=== PATIENT | female | born 2000 | race Caucasian/White ===

== ENCOUNTER 2023-05-22 11:23 | Outpatient (AMB) | payer OTHER, SELFPAY ==
--- NOTE | 2023-05-22 12:27 | MHC.OFFWIV ---
Intake Vital Signs 05/22/23 12:28 05/22/23 12:28 Height 5 ft 4 in Weight 124 lb 120 lb BMI 20.6 BP 110/70 Blood Pressure Location Lt brachial Position Sitting Pulse 87 Pulse Source Pulse Oximeter Temp 98.0 F Pulse Oximetry (%) 98 Oxygen Delivery Method Room Air Intake Visit Reasons: EP, slight dizziness, hx eating disorder Intake Note: pt is here today fpr slight dizziness, eating disorder started 4 days ago Patient Tobacco Use Status: Never used Tobacco Is last menstrual period known: No Patient : No Allergies No Known Allergies Allergy (Verified 05/22/23 12:52) Medication List - Last Reconciled 05/22/23 by Chai Michel MD No Known Home Meds Do you need a note to return to daycare/school/sports/work: No HPI EP, slight dizziness, hx eating disorder HPI Details 22-year-old female presents to the office for a sick visit. She had 1 episode of fainting 2 days ago. Patient got up from the tiny table and was about to go to the living room when she suddenly passed out. She woke up on the floor and felt fine. No urinary incontinence or any evidence of injury. Patient lives alone and so this episode was unwitnessed. She feels fine. She gives a history of eating disorder and is followed by a dietitian. She is requesting blood work. [facility] Social History Patient Tobacco Use Status: Never used Tobacco Patient : No Physical Exam Vital Signs: Last Vital Signs Temp 98.0 F 05/22/23 12:28 Pulse 87 05/22/23 12:28 BP 110/70 05/22/23 12:28 Pulse Ox 98 05/22/23 12:28 Oxygen Delivery Method Room Air 05/22/23 12:28 BMI result Body Mass Index 20.6 Const General: cooperative and healthy appearing Nutritional Appearance: well nourished Orientation/consciousness: patient oriented x3 Limitations: no limitations HEENT Head: Yes normal to inspection Eyes General: appearance normal, both eyes and all related structures Neck Neck: Yes normal visual inspection Chest Chest palpation & inspection: normal palpation of entire chest wall Resp Effort & Inspection: normal respiratory effort Neuro General: patient oriented x3 Assessment & Plan Assessment & Plan (1) Syncope: Code(s): R55 - Syncope and collapse Plan: Blood work ordered. Most likely symptoms are vasovagal. Coding Level of Care Code Est Pt Level 3 (42475) Diagnoses Syncope R55
[2023-05-22 12:28] VITALS: BP 110/70; PULSE 87; TEMP 36.7; O2SAT 98; BMI 20.6
== END 2023-05-22 12:51 | disposition home or self-care (01) ==
PROVIDERS: Visit Provider Internal Medicine
DX: R55 Syncope and collapse (principal)
CPT/HCPCS: 99213

== ENCOUNTER 2023-05-22 12:58 | Outpatient (REF) | payer OTHER, SELFPAY ==
[2023-05-22 16:56] LABS: Anion Gap 13 (12-20); Blood Urea Nitrogen 19 mg/dL (9-16); Calcium 10.1 mg/dL (8.4-10.2); Carbon Dioxide 25 mmol/L (22-29); Chloride 106 mmol/L (96-108); Estimated Glomerular Filt Rate > 60; Glucose Random 82 mg/dL (60-115); Potassium 4.2 mmol/L (3.3-5.1); Sodium 140 mmol/L (135-145)
[2023-05-22 17:13] LABS: Thyroid Stimulating Hormone 1.25 uIU/mL (0.32-4.0)
== END 2023-05-22 12:59 | disposition home or self-care (01) ==
LOC: HO.HMGCLDS 12:58
PROVIDERS: Visit Provider Internal Medicine
DX: R55 Syncope and collapse (principal)
CPT/HCPCS: 36415; 80048; 84443; 85027; 85652

== ENCOUNTER 2024-02-13 14:16 | Outpatient (AMB) | payer OTHER, SELFPAY ==
--- NOTE | 2024-02-13 14:20 | MHC.OFFWIV ---
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 Denies any chance of . 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 Due to this, she has also had decreased appetite. Denies any vomiting, diarrhea, constipation, or abdominal pain. Has been voiding and having normal BMs. Denies any fever, chills, recent illness, or any other associated symptoms. Denies known exposure to sick contacts. Has not tried any otc remedies for this. Denies chance of . [facility] Social History Patient Tobacco Use Status: Never used Tobacco Review of Systems Const All systems reviewed & are unremarkable except as noted in HPI and below Physical Exam Vital Signs: Last Vital Signs Pulse 87 02/13/24 14:23 BP 110/72 02/13/24 14:23 Pulse Ox 98 02/13/24 14:23 Oxygen Delivery Method Room Air 02/13/24 14:23 BMI result Body Mass Index 22.8 Const General: cooperative, healthy appearing, comfortable, no acute distress and Physically active Nutritional Appearance: average body habitus HEENT Head: Yes normal to inspection Ears: hearing grossly normal bilaterally Neck Neck: Yes no lymphadenopathy Resp Effort & Inspection: normal respiratory effort Auscultation: clear to auscultation bilaterally Cardio Rate: regular rate Rhythm: regular rhythm GI Palpation (GI): Soft to palpation (nontender) Skin General skin exam: no rashes or lesions noted Extrem General: Yes no clubbing, cyanosis or edema Psych Appearance: grossly normal Mental Status: mental status grossly normal Speech and movement: Normal speech and movement present Assessment & Plan Assessment & Plan (1) Nausea alone: Code(s): R11.0 - Nausea Plan: Patient having nausea alone, with no other associated symptoms. Will try Ondansetron and we discussed BRAT diet, advancing as tolerated. We reviewed indications and use of medication. She declined any viral testing today. She will return to clinic if symptoms do not resolve by next week with medication and conservative measures. She does not currently have a PCP and we discussed contacting primary care offices to make an appt. to get established with a PCP (lives in [place] so is going to try [facility] [place] office). All questions were answered and patient agrees to plan. Medications: New ondansetron 4 mg PO Q8H PRN 20 tabs 0RF nausea and vomiting R11.0 - Nausea Coding Level of Care Code Est Pt Level 4 (14495) Diagnoses Nausea alone R11.0
[2024-02-13 14:23] VITALS: BP 110/72; PULSE 87; O2SAT 98; BMI 22.8
== END 2024-02-13 15:12 | disposition home or self-care (01) ==
PROVIDERS: Visit Provider Nurse Practitioner Family
DX: R11.0 Nausea (principal)

== ENCOUNTER → 2024-02-13 14:16 | Outpatient (BNVA) | payer OTHER, SELFPAY | DX: R11.0 Nausea (principal) ==

== ENCOUNTER 2024-04-08 20:35 | Emergency (ER) | payer OTHER, SELFPAY ==
[2024-04-08 20:45] VITALS: BP 134/94; PULSE 84; RESP 18; TEMP 36.9; O2SAT 100; BMI 20.9
--- NOTE | 2024-04-08 20:45 | ED.GENADULT ---
HPI - General Adult General Chief complaint: Syncope Stated complaint: dizziness, syncopal episode Time Seen by Provider: 04/08/24 22:55 Source: patient Mode of arrival: ambulatory Limitations: no limitations History of Present Illness ED Provider: Dr. Nicolas Noriega HPI narrative: 23-year-old female with history of eating disorder presenting with complaint of syncope. The patient states that at 19:00 hours she was walking from her bedroom to her living room when she felt dizzy. She sat down and her symptoms improved but when she stood up she passed out. She fell to the floor but does not believe that she hit her head or had any significant injury from fall. She believes that will she lost consciousness for seconds. The patient does have an eating disorder and she does have a dietitian in therapist that helps a with this disorder. She states that last week she went 2 days without eating. She states that she has been eating daily since then but is eating very small amounts of food. She also states that she has only been drinking 1 bottle of water per day. She states that when she eats she does feel abdominal discomfort and she is concerned about repeating syndrome. 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 She denies tobacco use. She denies alcohol use. Social History Social History Patient Tobacco Use Status: Never used Tobacco Smoked in Last 30 Days: No Use of substances other than those prescribed or required for medical reasons: No Advance Directives: No Advance Directives Information Provided: No Do you have a plan to hurt others: No Plan Physical Exam ED Vital Signs: Vital Signs - 24 hr 04/08/24 20:45 04/08/24 21:24 04/08/24 21:24 Temperature 98.5 F Pulse Rate 84 80 75 Respiratory Rate 18 Blood Pressure 134/94 H 128/75 128/84 Pulse Oximetry 100 Oxygen Delivery Method Room Air 04/08/24 21:25 04/08/24 22:40 04/08/24 23:31 Temperature 98.2 F 98.2 F Pulse Rate 88 64 64 Respiratory Rate 16 16 Blood Pressure 120/88 124/80 124/80 Pulse Oximetry 100 100 Oxygen Delivery Method Room Air Room Air BMI result Body Mass Index 20.9 Vital signs were normal. Orthostatic vital signs: Lying: Heart rate 80, BP 128/77 Sitting: Heart rate 75, BP 128/84 Standing: Heart rate 88, BP 120/88 Exam: General: Awake, alert in no distress. Weight 55.2 kg, BMI low at 20.9 kg per meter sq Head: Normocephalic, atraumatic EENT: PERRL, Lids normal, sclera normal, conjunctiva normal, nose normal , ears normal, throat without erythema or exudates Neck: Supple, no adenopathy Lung: breath sounds symmetric, no wheezing, rales or rhonchi Chest: symmetric movement, nontender Heart: regular rate and rhythm, normal S1, S2 no murmurs or rubs Abdomen: soft, non-tender, nondistended, normal bowel sounds Back: no vertebral tenderness, no CVAT Extremities: no deformities, moves all extremities symmetrically Neuro: Awake, alert, oriented, normal speech, cranial nerves intact, moves all extremities symmetrically Psych: Pleasant, cooperative Course Course Course Narrative: This is a rapid medical exam performed by Selena Monzon NP: Additional HPI, ROS, PE not included below will be deferred to primary provider. Patient is a 23-year-old female with history of eating disorder presenting with complaint of syncope around 7pm today. Denies head strike. States has been struggling with her eating disorder recently. [employer] concerned for refeeding syndrome. Plan: EKG, labs Medical Decision Making Medical Decision Making MDM Narrative: 23-year-old female with history of eating disorder presenting with complaint of syncope. the patient has been eating small amounts of food and only drinking small amounts of fluid and did have appear to fasting last week with no food intake for 2 days. Patient had a syncopal episode when she was walking from her bedroom to the kitchen. Patient did have prodromal symptoms of lightheaded and dizziness before she syncopized. orthostatic vital signs were normal. Physical examination was unremarkable. Differential diagnosis: Includes but is not limited to Myocardial infarction, myocardial ischemia, electrolyte abnormalities, anemia, dehydration, volume depletion, malnutrition Course: My independent interpretation patient's laboratory evaluation is as follows: CBC was normal. CMP was normal Except for slight elevation in her total bilirubin of 1.2. Beta hCG was negative. EKG was unremarkable The patient's syncopal episode is consistent with a vasovagal syncope most likely triggered by malnutrition caused by her eating disorder and volume depletion from not drinking enough fluid during the day. I did discuss this with the patient. Patient was advised to try to increase the amount of food that she ate strain today and to try to increase the amount of fluid that she drinks as well. She is advised to follow-up with her therapist for further management of her eating disorder. Admission/Observation Consideration of admission/observation: Escalation of care including admission/observation considered ( Yes) Lab Data MDM Lab Attestation statement: I reviewed the patient's lab results. 04/08/24 21:11 04/08/24 21:11 Labs: Lab Results 04/08/24 04/08/24 Range/Units 20:50 21:11 WBC 7.4 (4.8-10.8) X10*3/uL RBC 4.72 (4.20-5.50) X10*6/uL Hgb 14.2 (12.0-16.0) g/dl Hct 41.9 (37.0-47.0) % MCV 88.8 (80.0-98.0) fL MCH 30.1 (27.0-33.0) pg MCHC 33.9 (31.0-35.0) g/dl RDW 12.0 (11.0-16.0) % Plt Count 233 (160-400) X10*3/uL MPV 8.8 L (9.4-12.3) fL Immature Gran % (Auto) 0.3 (0.0-0.4) % Neut % (Auto) 63.9 (45-73) % Lymph % (Auto) 26.9 (20-40) % Boundary % (Auto) 6.1 (2-11) % Eos % (Auto) 2.4 (0-4) % Baso % (Auto) 0.4 (0-2) % Lymph # (Auto) 2.0 (1.2-4.9) X10*3/uL Boundary # (Auto) 0.5 (0.1-1.2) X10*3/uL Eos # (Auto) 0.2 (0.0-0.4) X10*3/uL Baso # (Auto) 0.0 (0.0-0.2) X10*3/uL Abs Immat Gran (auto) 0.02 (0.00-0.03) X10*3/uL Absolute Neuts (auto) 4.7 (2.0-8.3) x10*3/uL Absolute Nucleated RBC 0.000 (0.0-0.012) X10*3/uL Nucleated RBC % (auto) 0.0 (0.0-0.2) /100WBC Sodium 140 (135-145) mmol/L Potassium 3.7 (3.3-5.1) mmol/L Chloride 107 (96-108) mmol/L Carbon Dioxide 24 (22-29) mmol/L Anion Gap 13 (12-20) BUN 15 (9-16) mg/dL Creatinine 0.74 (0.5-1.4) mg/dL Estim Creat Clear Calc 103.8 Estimated GFR > 60 POC Glucose 83 (60-115) mg/dL Random Glucose 88 (60-115) mg/dL Calcium 9.3 D (8.4-10.2) mg/dL Magnesium 2.1 (1.6-2.6) mg/dL Total Bilirubin 1.2 H (0.0-1.0) mg/dL AST 16 (5-31) U/L ALT 10 (0-31) U/L Alkaline Phosphatase 57 (39-117) U/L Total Protein 7.1 (6.5-8.0) g/dL Albumin 4.4 (3.5-5.0) g/dL Beta HCG, Quant < 2 mIU/mL Independent Interpretation I performed an independent interpretation of an: EKG Interpretation: My interpretation the patient's 12 EKG done at 20:53 hours is as follows: Normal sinus rhythm with a rate of 79, normal IA interval, QRS duration QTC interval, no ST segment elevation, no ST segment depression, no significant T-wave abnormalities, no PACs, no PVCs Chronic Conditions Patient?s care impacted by: Other ( eating disorder) Discharge Plan Discharge Clinical Impression: Vasovagal syncope Patient Disposition: Home, Self-Care Instructions: Syncope (ED) Additional Instructions: Your CBC, complete metabolic panel were normal. Your test was negative. Your EKG was normal as well. Your orthostatic vital signs were normal The reason why you passed out today was you are not drinking enough fluid and sometimes when your dehydrated or fluid depleted you can get lightheaded and dizzy and pass out. You should try to drink at least 2 L of fluid per day. You should also try to increase your food intake throughout the day. Continued to follow-up with your audio specialist and therapist to help with your eating disorder. Follow-up with your doctor in 2 days. Please return to the emergency department if your symptoms get worse or if you develop any symptoms that are concerning to you. Prescriptions: No Action ondansetron 4 mg tablet,disintegrating 4 mg PO Q8H PRN (Reason: nausea and vomiting) Qty: 20 0RF Interventions: ED Discharge Assessment Last Done: 04/08/24 23:31 Discharge Date/Time: 04/08/24 23:31 Print Language: Taiwanese
--- NOTE | 2024-04-08 20:47 | ECG_ITS ---
Test Reason : syncope Blood Pressure : / mmHG Vent. Rate : 079 BPM Atrial Rate : 079 BPM P-R Int : 164 ms QRS Dur : 098 ms QT Int : 352 ms P-R-T Axes : 000 -25 -12 degrees QTc Int : 403 ms Normal sinus rhythm with sinus arrhythmia Low voltage QRS Nonspecific T wave abnormality Abnormal ECG No previous ECGs available Referred By: Gregoria Monzon Electronically Signed By:FRANCOIS PAREDES MD
[2024-04-08 20:54] LABS: Glucose, Whole Blood 83 mg/dL (60-115)
[2024-04-08 21:16] LABS: MANUAL DIFF FLAG NO
[2024-04-08 21:17] LABS: Basophils Percent Auto 0.4 % (0-2); Eosinophils Absolute Auto 0.2 X10*3/uL (0.0-0.4); Eosinophils Percent Auto 2.4 % (0-4); Hematocrit 41.9 % (37.0-47.0); Hemoglobin 14.2 g/dl (12.0-16.0); Imm Gran Abs Auto 0.02 X10*3/uL (0.00-0.03); Imm Gran Pct Auto 0.3 % (0.0-0.4); Lymphocytes Percent Auto 26.9 % (20-40); Mean Corpuscular HGB Conc 33.9 g/dl (31.0-35.0); Mean Corpuscular Hemoglobin 30.1 pg (27.0-33.0); Mean Corpuscular Volume 88.8 fL (80.0-98.0); Mean Platelet Volume 8.8 fL (9.4-12.3); Monocytes Absolute Auto 0.5 X10*3/uL (0.1-1.2); Monocytes Percent Auto 6.1 % (2-11); Neutrophils Absolute Auto 4.7 x10*3/uL (2.0-8.3); Neutrophils Percent Auto 63.9 % (45-73); Platelet Count 233 X10*3/uL (160-400); Red Blood Count 4.72 X10*6/uL (4.20-5.50); White Blood Count 7.4 X10*3/uL (4.8-10.8)
[2024-04-08 21:24] VITALS: BP 128/75; BP 128/84; PULSE 75; PULSE 80
[2024-04-08 21:25] VITALS: BP 120/88; PULSE 88
--- NOTE | 2024-04-08 21:31 | PC.NURSE ---
pt from waiting room, a&ox4, vss. pt reports an unwitnessed loc from sitting today, denies head strike. pt reports recent history of eating disorder, pt reports been eating significantly more than baseline. pt reports she thinks this may have been the cause. pt offers no other complaints at this time.
[2024-04-08 21:37] LABS: Alanine Aminotransferase 10 U/L (0-31); Albumin Level 4.4 g/dL (3.5-5.0); Alkaline Phosphatase 57 U/L (39-117); Anion Gap 13 (12-20); Aspartate Amino Transferase 16 U/L (5-31); Bilirubin Total 1.2 mg/dL (0.0-1.0); Blood Urea Nitrogen 15 mg/dL (9-16); Calcium 9.3 mg/dL (8.4-10.2); Carbon Dioxide 24 mmol/L (22-29); Chloride 107 mmol/L (96-108); Creatinine Clr Calc Pharmacy 103.8; Estimated Glomerular Filt Rate > 60; Glucose Random 88 mg/dL (60-115); Magnesium 2.1 mg/dL (1.6-2.6); Potassium 3.7 mmol/L (3.3-5.1); Sodium 140 mmol/L (135-145); Total Protein 7.1 g/dL (6.5-8.0)
[2024-04-08 21:39] LABS: HCG Quantitative < 2 mIU/mL
[2024-04-08 22:40] VITALS: BP 124/80; PULSE 64; RESP 16; TEMP 36.8; O2SAT 100
[2024-04-08 23:31] VITALS: BP 124/80; PULSE 64; RESP 16; TEMP 36.8; O2SAT 100
== END 2024-04-08 23:31 | disposition home or self-care (01) ==
PROVIDERS: Registered Nurse Emergency; Emergency Provider Emergency Medicine Emergency Medical Services
DX: R55 Syncope and collapse (principal); R42 Dizziness and giddiness; R10.9 Unspecified abdominal pain
CPT/HCPCS: 36415; 80053; 82947; 83735; 84702; 85025; 93005; 99283; 99285

== ENCOUNTER → 2024-04-08 20:47 | Outpatient (BNV) | payer OTHER, SELFPAY | PROVIDERS: Emergency Provider Emergency Medicine Emergency Medical Services; Visit Provider Internal Medicine Cardiovascular Disease | DX: R94.31 Abnormal electrocardiogram [ECG] [EKG] (principal) | CPT/HCPCS: 93010 ==

== ENCOUNTER 2024-08-14 11:03 | Outpatient (AMB) | payer OTHER, SELFPAY ==
--- NOTE | 2024-08-14 11:32 | AM.OFFWIN_ITS ---
Intake Vital Signs 08/14/24 11:33 Weight 123 lb BP 110/70 Blood Pressure Location Rt brachial Position Sitting Pulse 65 Pulse Source Pulse Oximeter Pulse Oximetry (%) 98 Oxygen Delivery Method Room Air Intake Visit Reasons: EP Muscle aches/cramping Intake Note: Patient here for muscle cramps and weakness for the past couple of days. Patient Tobacco Use Status: Never used Tobacco Allergies shellfish derived Allergy (Verified 08/14/24 11:34) Unknown Do you need a note to return to daycare/school/sports/work: No HPI HPI Comments History of Present Illness Details History of Present Illness - The patient is a 23-year-old female pr esenting with muscle cramps, leg aches, and dizziness starting about three days ago. - Chief symptoms are muscle aches in the legs and back, severe calf cramps, and associated dizziness. - She denies being dehydrated and has be en hydrating with various fluids but without symptomatic relief. - A similar incident occurred years ago and her kidneys were affected, possibly linked to inadequate nutrition. 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 - Current hydration practices involve ap proximately two water bottles daily, with urine output normal. - She is trying to establish care with a primary care provider. Physical Exam General: Cooperative, healthy appearing, comfortable, no acute distress and well developed Orientation: Patient oriented x3 Limitations: none Head: Normal to inspection Ears: Hearing grossly normal bilaterally Nose: Normal External nose present Face and sinus: Normal facial exam Eyes: Appearance normal, both eyes and all related structures Neck: Normal visual inspection and Yes full ROM Respiratory: Normal respiratory effort and able to speak in complete sentences. Skin: No rashes or lesions noted Neuro: Patient oriented x3 Extremities: normal to inspection [facility] Social History Patient Tobacco Use Status: Never used Tobacco Review of Systems Const All systems reviewed & are unremarkable except as noted in HPI and below Physical Exam Vital Signs: Last Vital Signs Pulse 65 08/14/24 11:33 BP 110/70 08/14/24 11:33 Pulse Ox 98 08/14/24 11:33 Oxygen Delivery Method Room Air 08/14/24 11:33 Assessment & Plan Assessment & Plan (1) Bilateral leg cramps: Code(s): R25.2 - Cramp and spasm Plan: The consultation aimed to address ongoing muscle cramps, leg aches, and dizziness. Suspecting a viral origin, tests for influenza, COVID-19, and RSV are to be performed. Magnesium glycinate is recommended for muscle cramps. The patient is encouraged to persist with her current hydration routine while monitoring urine for abnormalities. Should her condition deteriorate or involve kidney functionality concerns, visiting an emergency unit for immediate assessment and laboratory work is advised. Arrangements for establishing a primary care provider are encouraged to ensure comprehensive ongoing health monitoring. Patient was given information and a phone number to establish care with a PCP. Patient was informed and verbally consented to the use of an ambient scribe for clinic note documentation during this visit. Orders: Orders SARS-CoV2/FLU/RSV Today R09.89 - Other specified symptoms and signs involving the circulatory and respiratory systems Coding Level of Care Code New Pt Level 3 (46400) Diagnoses Bilateral leg cramps R25.2
[2024-08-14 11:33] VITALS: BP 110/70; PULSE 65; O2SAT 98
== END 2024-08-14 11:55 | disposition home or self-care (01) ==
PROVIDERS: Visit Provider Physician Assistant
DX: R25.2 Cramp and spasm (principal)

== ENCOUNTER 2024-08-14 11:03 | Outpatient (REF) | payer OTHER, SELFPAY ==
[2024-08-14 15:16] LABS: Influenza A PCR NEGATIVE (Negative); Influenza B PCR NEGATIVE (Negative); Resp Syncy Virus RNA Qual PCR NEGATIVE (Negative); SARS COV2 PCR INHOUSE NEGATIVE (Negative)
== END 2024-08-14 11:04 | disposition home or self-care (01) ==
LOC: HO.LAB 11:03
PROVIDERS: Visit Provider Physician Assistant
DX: R25.2 Cramp and spasm (principal); R09.89 Other specified symptoms and signs involving the circulatory and respiratory systems
CPT/HCPCS: 0241U

== ENCOUNTER 2024-12-10 12:38 | Emergency (ER) | payer OTHER, SELFPAY ==
--- NOTE | ~2024-12-10 | CT_ITS ---
EXAMINATION: CT HEAD WITHOUT IV CONTRAST HISTORY: dizziness, fogginess, AMS. TECHNIQUE: Unenhanced helical CT of the head was performed per standard departmental protocol. Coronal and sagittal reformats of the head were also evaluated. One or more of the following techniques was used for dose reduction: Automated exposure control, adjustment of the mA and/or kV according to patient size, use of iterative reconstruction technique. DLP: 597 mGy-cm COMPARISON: There are no prior studies available for comparison. FINDINGS: BRAIN: The brain parenchyma is unremarkable. There is normal xiong/white differentiation. The ventricular system is normal in size and configuration. There is no mass effect or midline shift. No intra- or extra-axial fluid collections are identified. SINUSES: The visualized paranasal sinuses are clear. The mastoid air cells and middle ear cavities are well pneumatized. ORBITS: The visualized orbits are unremarkable. BONES/SOFT TISSUES: The extracranial soft tissues are unremarkable. The calvarium is intact. No suspicious lytic or sclerotic lesions. CT/CT head/brain wo IV con IMPRESSION: Unremarkable unenhanced head CT. Electronically signed by: Tyrel Gutierrez MD 12/10/2024 02:05 PM EDT
--- NOTE | ~2024-12-10 | XR_ITS ---
EXAMINATION: XR CHEST 1 VIEW HISTORY: dizziness, weakness COMPARISON: There are no prior studies available for comparison. FINDINGS: A single AP portable view of the chest performed at 1:13 PM is submitted. The lungs are expanded and clear. There is no pleural effusion, pneumothorax, or pulmonary vascular congestion. The heart is normal in size. The bones are intact. XR/XR chest 1V IMPRESSION: Clear lungs. Electronically signed by: Tyrel Gutierrez MD 12/10/2024 01:29 PM EDT
[2024-12-10 12:44] VITALS: BP 134/89; PULSE 128; RESP 18; TEMP 36.4; O2SAT 99; BMI 20.7
--- NOTE | 2024-12-10 12:44 | ED_ITS ---
HPI - General Adult General Chief complaint: General Medical Stated complaint: New neurological symptoms Time Seen by Provider: 12/10/24 12:50 Source: patient Mode of arrival: ambulatory Limitations: no limitations History of Present Illness ED Provider: Samara Limon PA-C HPI narrative: Patient is a 23 year old assigned female at with no reported medical history presenting to the emergency department today with intermittent fogginess, dizziness, hot flashes, sweating, and nausea. Patient states that a few times over the last 2 weeks she has had these episodes where she has intense grant vu, becomes foggy / confused, lightheaded, warm, and nauseous requiring her to lie down. Patient states that she remembers the incidents when they happen and there isn't anything in particular that is causing them. Patient denies any abdominal pain, vomiting, fever, chills, blurry vision, double vision, loss of vision, chest pain, difficulty breathing, shortness of breath, back pain, night sweats, pain with urination, increased urinary frequency, increased urinary urgency, blood in her urine or stool, syncope or a near syncopal episode, recent trauma or falls, bowel incontinence, bladder incontinence, or any other complaints at this time. Exacerbating factors: none Associated symptoms: diaphoresis (with the episode) and nausea/vomiting (with the episode) Treatments prior to arrival: none Related Data Previous Rx's ?Medication ?Instructions ?Recorded ondansetron 4 mg disintegrating 4 mg PO Q8H PRN nausea and 02/13/24 tablet vomiting #20 tabs Allergies Allergy/AdvReac Type Severity Reaction Status Date / Time shellfish derived Allergy Unknown Verified 12/10/24 12:51 Review of Systems 2 Constitutional: Constitutional: Reports no additional constitutional complaints, Denies chills, Denies fever(s) and Denies night sweats Eyes: Eyes: Reports no additional eye complaints, Denies blurry vision, Denies change in vision, Denies diplopia, Denies eye discharge, Denies loss of vision and Denies eye pain ENT: Reports dizziness (with the episode) Cardiovascular: Cardiovascular: Reports no additional cardiovascular complaints, Denies chest pain, Reports lightheadedness (with the episode), Denies Loss of Consciousness and Denies dyspnea Respiratory: Respiratory: Reports no additional respiratory complaints and Denies dyspnea Gastrointestinal: Gastrointestinal: Reports no additional gastrointestinal complaints, Denies abdominal pain, Denies melena, Denies hematochezia, Denies change in bowel habits and Denies change in stool character Genitourinary: Genitourinary: Denies hematuria, Denies urinary frequency, Denies dysuria, Denies urinary incontinence, Denies urinary hesitancy and Denies urinary urgency Musculoskeletal: Musculoskeletal: Reports no additional musculoskeletal complaints, Denies numbness and Denies tingling Neurologic: Reports dizziness (with the episode), Denies loss of vision, Denies numbness and Denies tingling Psychiatric: Psychiatric: Reports no additional psychiatric complaints Endocrine: Endocrine: Reports no additional endocrine complaints Hematologic/Lymphatic: Hematologic/Lymphatic: Reports no additional hematologic/lymphatic complaints Allergic/Immunologic: Allergic/Immunologic: Reports no additional allergic/immunologic complaints PMFSH Past Medical History Attestation statement: The following information was validated with the patient. Source: old records reviewed and nursing notes reviewed Social History Social History Patient Tobacco Use Status: Never used Tobacco Smoked in Last 30 Days: No Use of substances other than those prescribed or required for medical reasons: No Advance Directives: No Advance Directives Information Provided: Yes Do you have a plan to hurt others: No Plan Physical Exam ED Vital Signs: Vital Signs - 24 hr 12/10/24 12:44 12/10/24 13:32 12/10/24 13:33 Temperature 97.6 F Pulse Rate 128 H 70 83 Respiratory Rate 18 12 Blood Pressure 134/89 121/70 111/61 Pulse Oximetry 99 100 Oxygen Delivery Method Room Air Tent Room Air 12/10/24 13:34 12/10/24 13:35 Temperature Pulse Rate 90 73 Respiratory Rate Blood Pressure 120/72 127/79 Pulse Oximetry Oxygen Delivery Method BMI result Body Mass Index 20.7 Const General: cooperative, no acute distress, alert and awake Nutritional Appearance: well nourished Orientation/consciousness: patient oriented x3 HENMT Head: Yes normal to inspection and Yes atraumatic Ears: hearing grossly normal bilaterally and external ears normal General nose exam: Normal external nose present, no nasal discharge noted and no epistaxis Face and sinus: Yes normal facial exam, No abrasion and No laceration Mouth: Normal oral and palatal mucosa present, no drooling and no muffled voice Eyes General: appearance normal, both eyes and all related structures Periorbital: periorbital findings normal Eyelids: Yes eyelids normal Conjunctivae: conjunctivae normal Pupils: Equal, round and reactive pupils present EOM: EOMs intact bilaterally Neck Neck: Yes normal visual inspection, Yes full ROM and Yes no lymphadenopathy Resp Effort & Inspection: normal respiratory effort and able to speak in complete sentences Neuro General: patient oriented x3, moves all extremities and CN's II-XI intact bilaterally Cranial nerves: Yes Equal, round and reactive pupils present Cognition (Neuro): normal cognition Extrem General: Yes normal to inspection, Yes full ROM and Yes capillary refill normal Psych Appearance: grossly normal Mental Status: mental status grossly normal Affect: normal affect Attitude: cooperative Thought process: Normal thought process present Thought content: Normal thought content present Insight: Good insight present (Psych) Course Course Course Narrative: This is an RME: Additional HPI, ROS, PE not included below will be deferred to primary provider. RME assessment and note performed by: Nayeli Ventura PA-C This is a 86-olhg-xsm-female, with a history of migraines, who presents to the ER with a complaint of episodes of fogginess where she has to lay down. On arrival to triage, pt is tachycardic in the 140s. No CP or SOB. No recent travel, surgery, or hospitalizations. Last episode of this was on Saturday. She is not on control - denies chance of . Plan: Labs, EKG, patient to be brought back Medications Administered Discontinued Medications Generic Name Dose Route Start Last Admin Trade Name Freq PRN Reason Stop Dose Admin Sodium Chloride 1,000 mls @ 999 mls/hr 12/10/24 13:00 12/10/24 13:07 Ns IV 12/10/24 14:00 999 mls/hr .Q1H1M [facility] Administration Medical Decision Making Medical Decision Making MDM Narrative: Patient is a 23 year old assigned female at with no reported medical history presenting to the emergency department today with intermittent fogginess, dizziness, hot flashes, sweating, and nausea. Patient's physical exam showed a sinus arrhythmia with initial tachycardia but otherwise unremarkable. Patient's blood work was unremarkable. Patient's EKG showed sinus arrhythmia. Patient's chest x-ray and head CT showed no acute process. Patient's clinical presentation is most consistent with POTS / inappropriate tachycardia / vasovagal syncope. At this time, I do not believe the patient to be suffering from a seizure disorder. I explained my physical exam findings as well as all test results to the patient. I answered all questions asked by the patient. I stressed the importance of the patient taking her medication as directed (either prescribed or as the over the counter packaging recommends). I stressed the importance of the patient following up with a primary care provider, the cardiology team, and the neurology team to have a more comprehensive outpatient work up. I stressed the importance of the patient returning to the emergency department immediately if her symptoms were to worsen or if she were to develop any dizziness, shortness of breath, difficulty breathing, chest pain, blurry vision, loss of vision, nausea, vomiting, abdominal pain, fever, chills, back pain, or any other complaints. Patient verbalized agreement and understanding with this treatment plan and discharge. Differential Diagnosis Differential Diagnoses: The differential diagnosis associated with the presentation includes POTS Transient tachycardia Vasovagal syncope Near syncope Admission/Observation Consideration of admission/observation: Escalation of care including admission/observation considered Patient would have been admitted to the hospital had her work up had any findings where hospital admission was appropriate and her clinical presentation warranted hospital admission. Lab Data [facility] Lab Attestation statement: I reviewed the patient's lab results. My interpretation of these results are in the [facility] Rationale portion of this note. 12/10/24 13:04 12/10/24 13:04 Labs: Lab Results 12/10/24 Range/Units 13:04 WBC 7.2 (4.8-10.8) X10*3/uL RBC 4.71 (4.20-5.50) X10*6/uL Hgb 14.4 (12.0-16.0) g/dl Hct 40.2 (37.0-47.0) % MCV 85.4 (80.0-98.0) fL MCH 30.6 (27.0-33.0) pg MCHC 35.8 H (31.0-35.0) g/dl RDW 12.0 (11.0-16.0) % Plt Count 247 (160-400) X10*3/uL MPV 9.1 L (9.4-12.3) fL Immature Gran % (Auto) 0.1 (0.0-0.4) % Neut % (Auto) 62.0 (45-73) % Lymph % (Auto) 30.3 (20-40) % Emmet % (Auto) 5.8 (2-11) % Eos % (Auto) 1.5 (0-4) % Baso % (Auto) 0.3 (0-2) % Lymph # (Auto) 2.2 (1.2-4.9) X10*3/uL Emmet # (Auto) 0.4 (0.1-1.2) X10*3/uL Eos # (Auto) 0.1 (0.0-0.4) X10*3/uL Baso # (Auto) 0.0 (0.0-0.2) X10*3/uL Abs Immat Gran (auto) 0.01 (0.00-0.03) X10*3/uL Absolute Neuts (auto) 4.5 (2.0-8.3) x10*3/uL Absolute Nucleated RBC 0.000 (0.0-0.012) X10*3/uL Nucleated RBC % (auto) 0.0 (0.0-0.2) /100WBC D-Dimer High Sensitivty 216 NG/ML Sodium 139 (135-145) mmol/L Potassium 3.7 (3.3-5.1) mmol/L Chloride 110 H (96-108) mmol/L Carbon Dioxide 23 (22-29) mmol/L Anion Gap 10 L (12-20) BUN 16 (9-16) mg/dL Creatinine 0.69 (0.5-1.4) mg/dL Estim Creat Clear Calc 111.1 Estimated GFR > 60 Random Glucose 97 (60-115) mg/dL Calcium 9.3 (8.4-10.2) mg/dL Magnesium 1.9 (1.6-2.6) mg/dL Total Bilirubin 0.8 (0.0-1.0) mg/dL Direct Bilirubin 0.3 (0.0-0.5) mg/dL AST 15 (5-31) U/L ALT 8 (0-31) U/L Alkaline Phosphatase 55 (39-117) U/L Troponin I High Sens < 2.7 (<3.5-17.0) ng/L Total Protein 7.5 (6.5-8.0) g/dL Albumin 4.8 (3.5-5.0) g/dL Lipase 18 (8-78) U/L TSH 0.93 (0.32-4.0) uIU/mL Beta HCG, Quant < 2 mIU/mL T.pallidum Ab (EIA) Nonreactive (Nonreactive) Independent Interpretation I performed an independent interpretation of an: EKG, Plain X-Ray and CT Scan Interpretation: My interpretation is in agreement with the radiologist's impression of these imaging studies. L Report Number: [id number]: Total DLP = 567.00 mGy-cm EXAMINATION: CT HEAD WITHOUT IV CONTRAST HISTORY: dizziness, fogginess, AMS. TECHNIQUE: Unenhanced helical CT of the head was performed per standard departmental protocol. Coronal and sagittal reformats of the head were also evaluated. One or more of the following techniques was used for dose reduction: Automated exposure control, adjustment of the mA and/or kV according to patient size, use of iterative reconstruction technique. DLP: 597 mGy-cm COMPARISON: There are no prior studies available for comparison. FINDINGS: BRAIN: The brain parenchyma is unremarkable. There is normal xiong/white differentiation. The ventricular system is normal in size and configuration. There is no mass effect or midline shift. No intra- or extra-axial fluid collections are identified. SINUSES: The visualized paranasal sinuses are clear. The mastoid air cells and middle ear cavities are well pneumatized. ORBITS: The visualized orbits are unremarkable. BONES/SOFT TISSUES: The extracranial soft tissues are unremarkable. The calvarium is intact. No suspicious lytic or sclerotic lesions. CT/CT head/brain wo IV con IMPRESSION: Unremarkable unenhanced head CT. Electronically signed by: Tyrel Gutierrez MD 12/10/2024 02:05 PM EDT Dictated By: Tyrel Gutierrez MD Signed By: Electronically signed by Tyrel Gutierrez MD 12/10/24 1405 EXAMINATION: XR CHEST 1 VIEW HISTORY: dizziness, weakness COMPARISON: There are no prior studies available for comparison. FINDINGS: A single AP portable view of the chest performed at 1:13 PM is submitted. The lungs are expanded and clear. There is no pleural effusion, pneumothorax, or pulmonary vascular congestion. The heart is normal in size. The bones are intact. XR/XR chest 1V IMPRESSION: Clear lungs. Electronically signed by: Tyrel Gutierrez MD 12/10/2024 01:29 PM EDT RP Dictated By: Tyrel Gutierrez MD Signed By: Electronically signed by Tyrel Gutierrez MD 12/10/24 1329 I independently interpreted this EKG and am in agreement with the below findings: Vent. Rate: 89 BPM Atrial Rate: 89 BPM P-R Int: 158 ms QRS Dur: 96 ms QT Int: 362 ms P-R-T Axes: 55 -14 22 degrees QTcB Int: 440 ms Normal sinus rhythm with sinus arrhythmia Normal ECG When compared with ECG of 08-Apr-2024 20:53, Nonspecific T wave abnormality has replaced inverted T waves in Anterior leads DD/ 1251 Radiology Impression Discussion of test interpretation with radiology: I have reviewed the radiologist's reading. Discharge Plan Discharge Clinical Impression: Tachycardia, Dizziness Patient Disposition: Home, Self-Care Instructions: Dizziness (ED), POTS (Postural Orthostatic Tachycardia Syndrome) (ED) Additional Instructions: Your work up today was very reassuring there is no EMERGENT cause for your symptoms, however, this should be worked up further on an outpatient basis. I am suspicious you have POTS and should follow up with the Cardiology team to confirm this and rule out other pathologies. Additionally, given your neurological complaints such as fogginess - you should follow up with the neurology team. Follow up with a primary care provider. Return to the emergency department immediately if your symptoms worsen or if you develop any numbness, tingling, dizziness, shortness of breath, difficulty breathing, chest pain, blurry vision, loss of vision, nausea, vomiting, abdominal pain, fever, chills, back pain, or any other complaints. L If you do not have a primary care provider - call any of the below numbers to establish and follow up with a primary care provider. [facility] Primary Care ([place]) [phone] [place] [address], [address] [facility] Primary Care ([address] [place]) [phone] [place] [address], [address] [facility], [address] [facility] Primary Care ([address] [place]) [phone] [place] [address], [address] [facility], [address] [facility] Primary Care ([place]) [phone] [place] [address] 2 [facility], [address] [facility] Family Medicine [phone] [place] [address], [address] Please see the information below about our Patient Portal. If you are not yet enrolled in the [facility] Patient Portal, you will receive an enrollment email invitation following your visit to any [facility] setting. You may also self-enroll in the Patient Portal by visiting our website: [email or web address] The following information is required to access the Patient Portal: - Your [facility] Medical Record Number - Your personal home email address (must match what is in your electronic medical record, Registration staff can assist with this) - Name - Date of Capabilities of the Patient Portal: - Message some providers - View upcoming appointments - Access your health summary, medical history, and visit history - View current conditions and allergies - View procedure and lab results - View your medications, including guidelines, side effects, and precautions - Complete pre-appointment questionnaires requested by your provider - Ready summary reports of your office visits and procedures To access the Patient Portal Mobile Gar[employer], follow these directions: - Search [employer] in the Garo Store or Google Play Store - Download the Garo - Search for [facility] - Enter your login/password Prescriptions: No Action ondansetron 4 mg tablet,disintegrating 4 mg PO Q8H PRN (Reason: nausea and vomiting) Qty: 20 0RF Referrals: [facility] Cardiovascular Specialists [Provider Group] Referral Note: Call to establish and follow up with the cardiology team for possible POTS vs. other cardiac etiology for these episodes. [facility] Neuro/Sleep [Provider Group] Referral Note: Call to establish and follow up with the neurology team for these episodes of fogginess. Print Language: Angolan
--- NOTE | 2024-12-10 12:46 | ECG_ITS ---
Test Reason : chest pain Blood Pressure : */* mmHG Vent. Rate : 89 BPM Atrial Rate : 89 BPM P-R Int : 158 ms QRS Dur : 96 ms QT Int : 362 ms P-R-T Axes : 55 -14 22 degrees QTcB Int : 440 ms Normal sinus rhythm with sinus arrhythmia Normal ECG When compared with ECG of 08-Apr-2024 20:53, Nonspecific T wave abnormality has replaced inverted T waves in Anterior leads Referred By: Nayeli Ventura Electronically Signed By: Ian Hickman
[2024-12-10 13:10] LABS: Hematocrit 40.2 % (37.0-47.0); Hemoglobin 14.4 g/dl (12.0-16.0); Imm Gran Abs Auto 0.01 X10*3/uL (0.00-0.03); Imm Gran Pct Auto 0.1 % (0.0-0.4); Lymphocytes Absolute Auto 2.2 X10*3/uL (1.2-4.9); MANUAL DIFF FLAG NO; Mean Corpuscular HGB Conc 35.8 g/dl (31.0-35.0); Mean Corpuscular Hemoglobin 30.6 pg (27.0-33.0); Mean Corpuscular Volume 85.4 fL (80.0-98.0); NRBC Abs Auto 0.000 X10*3/uL (0.0-0.012); NRBC Pct Auto 0.0 /100WBC (0.0-0.2); Platelet Count 247 X10*3/uL (160-400); Red Blood Count 4.71 X10*6/uL (4.20-5.50); White Blood Count 7.2 X10*3/uL (4.8-10.8)
[2024-12-10 13:20] LABS: D Dimer High Sensitivity 216 NG/ML
[2024-12-10 13:32] VITALS: BP 121/70; PULSE 70; RESP 12; O2SAT 100
[2024-12-10 13:33] VITALS: BP 111/61; PULSE 83
[2024-12-10 13:34] VITALS: BP 120/72; PULSE 90
[2024-12-10 13:35] VITALS: BP 127/79; PULSE 73
[2024-12-10 13:35] LABS: Alanine Aminotransferase 8 U/L (0-31); Albumin Level 4.8 g/dL (3.5-5.0); Alkaline Phosphatase 55 U/L (39-117); Anion Gap 10 (12-20); Aspartate Amino Transferase 15 U/L (5-31); Blood Urea Nitrogen 16 mg/dL (9-16); Calcium 9.3 mg/dL (8.4-10.2); Carbon Dioxide 23 mmol/L (22-29); Chloride 110 mmol/L (96-108); Creatinine Clr Calc Pharmacy 111.1; Estimated Glomerular Filt Rate > 60; Lipase 18 U/L (8-78); Magnesium 1.9 mg/dL (1.6-2.6); Potassium 3.7 mmol/L (3.3-5.1); Sodium 139 mmol/L (135-145); Total Protein 7.5 g/dL (6.5-8.0)
[2024-12-10 13:37] LABS: Troponin-I High Sensitivity < 2.7 ng/L (<3.5-17.0)
[2024-12-10 13:59] LABS: Syphilis Screen Nonreactive (Nonreactive)
[2024-12-10 15:30] VITALS: BP 127/79; PULSE 73; RESP 16; TEMP 37.1; O2SAT 95
[2024-12-10 16:11] LABS: Resp Syncy Virus RNA Qual PCR NEGATIVE (Negative); SARS COV2 PCR INHOUSE NEGATIVE (Negative)
[2024-12-11 15:53] LABS: Lyme Blot 4.13 index
[2024-12-12 02:03] LABS: A. Phagocytphilium DNA,RT-PCR NOT DETECTED (NOT DETECTED); Babesia Microti DNA, RT-PCR NOT DETECTED (NOT DETECTED); Borrelia Miyamotoi,DNA RT-PCR NOT DETECTED (NOT DETECTED); E.Chaffeensis DNA RT-PCR NOT DETECTED (NOT DETECTED); Lyme(Borrelia ssp)DNA RT-PCR NOT DETECTED (NOT DETECTED)
[2024-12-13 11:45] LABS: Lyme Abs Screen POSITIVE
[2024-12-21 23:03] LABS: 39KD (IgG) Band REACTIVE; 41KD (IgG) Band REACTIVE; Lyme IgG Blot Interp NEGATIVE (NEGATIVE); Lyme IgM Blot Interp NEGATIVE (NEGATIVE)
== END 2024-12-10 15:31 | disposition home or self-care (01) ==
PROVIDERS: Physician Assistant Medical; Emergency Provider Emergency Medicine
DX: R00.0 Tachycardia, unspecified (principal); R55 Syncope and collapse
CPT/HCPCS: 36415; 70450; 71045; 80048; 80076; 83690; 83735; 84443; 84484; 84702; 85025; 85379; 86617; 86618; 86780; 87468; 87469; 87478; 87484; 87637; 87798; 93005; 96360; 96361; 99284; 99285

== ENCOUNTER → 2024-12-10 12:46 | Outpatient (BNV) | payer OTHER, SELFPAY | PROVIDERS: Emergency Provider Emergency Medicine; Visit Provider Internal Medicine Cardiovascular Disease | DX: R07.9 Chest pain, unspecified (principal) | CPT/HCPCS: 93010 ==

== ENCOUNTER → 2024-12-10 12:51 | Outpatient (BNV) | payer OTHER, SELFPAY | PROVIDERS: Visit Provider Radiology Diagnostic Radiology | DX: R42 Dizziness and giddiness (principal); R41.82 Altered mental status, unspecified; R53.1 Weakness | CPT/HCPCS: 70450; 71045 ==

== ENCOUNTER 2025-01-01 09:11 | Outpatient (AMB) | payer OTHER, SELFPAY ==
[2025-01-01 09:13] VITALS: BP 90/62; PULSE 96; BMI 21.5
--- NOTE | 2025-01-01 09:13 | MHC.OFFVIS ---
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 She was referred to Cardiology in follow-up. Today she reports that she has been having episodes where she feels a sense of days off who then nauseous then lightheaded and with heat in her body. She is left with a foggy feeling causing her concern. These episodes occur without pattern, mostly while she is standing but has occurred once with her sitting. She has not had any recent syncopal events. She did have a syncopal episode last fall when she was not eating or drinking properly. She says her current episodes are very different. No chest discomfort, shortness of breath, heart palpitations. 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 She reports being told she had a heart murmur as a child and at least 1 EKG in the past with prolonged QT interval. She has no significant family history of heart disease. She is a nonsmoker and drinks alcohol socially. PENDING SALE TO [facility] Social History Patient Tobacco Use Status: Never used Tobacco Review of Systems Const Details: episodes of foggy head with nausea, heat in body All systems reviewed & are unremarkable except as noted in HPI and below ENT Reports dizziness Card Denies chest pain, Denies chest pain at rest, Denies chest pain with activity, Denies rapid heart rate, Denies pedal edema, Denies edema, Denies leg edema, Denies lightheadedness, Denies palpitations, Denies dyspnea, Denies dyspnea on exertion and Denies orthopnea Resp Denies cough, Denies dyspnea and Denies dyspnea on exertion GI Denies hematochezia and Denies change in stool character Musc Denies abnormal gait, Denies limited range of motion, Denies muscle cramps, Denies muscle weakness, Denies numbness, Denies radiating pain into limb, Denies stiffness and Denies tingling Neuro Denies abnormal gait, Reports dizziness, Denies numbness and Denies tingling Endo Denies palpitations Physical Exam Vital Signs: Last Vital Signs Pulse 96 01/01/25 09:13 BP 90/62 01/01/25 09:13 BMI result Body Mass Index 21.5 Const General: cooperative, healthy appearing, comfortable and no acute distress Orientation/consciousness: patient oriented x3 Neck Neck: Yes normal visual inspection Resp Effort & Inspection: normal respiratory effort Auscultation: clear to auscultation bilaterally, no crackles, no rales, no rhonchi and no wheezes Cardio Rate: regular rate Rhythm: regular rhythm Heart sounds: S1 normal heart sound present, S2 normal heart sound present, no gallops, no murmurs and no rubs Neuro General: patient oriented x3 Extrem General: Yes normal to inspection, No no pedal edema and No calf tenderness Psych Appearance: grossly normal Mental Status: mental status grossly normal Speech and movement: Normal speech and movement present Assessment & Plan Assessment & Plan (1) Lightheadedness: Code(s): R42 - Dizziness and giddiness Category: Medical Plan: Intermittent episodes as described above which could be presyncopal type events. She had an episode of syncope last fall which was thought to be vasovagal. Her blood pressure is low today at 90/62. EKG from 12/10/2024 showed normal sinus rhythm with sinus arrhythmia, normal IA, QRS and QTC intervals, rate 89. Will check echocardiogram to assess for structural heart disease. Will check Holter monitor to assess for any concerning arrhythmia. Will check tilt-table test to assess for types of syncope. Reviewed good hydration, increase salt intake, continue physical activity as tolerated. Cardiology follow-up when test results are available. (2) Low BP: Code(s): I95.9 - Hypotension, unspecified Category: Medical Plan: Low blood pressure reading today. She has reports that she typically runs 110 over 70s. Reviewed need for good hydration and increase salt. It is possible her events are related to symptomatic hypotension. Plan Time spent on chart review, documentation, interview and assessment Orders: Orders CA echo transthoracic complete Today I95.9 - Hypotension, unspecified, R42 - Dizziness and giddiness ECG 3 day holter monitor Today I95.9 - Hypotension, unspecified, R42 - Dizziness and giddiness ECG Tilt Table Test Today I95.9 - Hypotension, unspecified, R42 - Dizziness and giddiness Coding Level of Care Code New Pt Level 3 (41721) Complex EM visit Add On G2211 Diagnoses Lightheadedness R42 Low BP I95.9 Time Spent (min) 24
== END 2025-01-01 09:41 | disposition home or self-care (01) ==
LOC: HO.HCS 09:12
PROVIDERS: PCP Physician Assistant Medical; Visit Provider Nurse Practitioner Family
DX: R42 Dizziness and giddiness (principal); I95.9 Hypotension, unspecified
CPT/HCPCS: 99203

== ENCOUNTER 2025-01-11 09:57 | Outpatient (REF) | payer OTHER, SELFPAY ==
[2025-01-11 15:23] LABS: Total Hemoglobin (HGBA1C) 3514.1910 umol/L
[2025-01-11 15:44] LABS: Cholesterol 177 mg/dL (<200); HDL Cholesterol 47 mg/dL (>40); Magnesium 2.2 mg/dL (1.6-2.6); Triglycerides 87 mg/dL (<150)
[2025-01-11 16:14] LABS: Folate 12.8 ng/mL (> or = 4.0); Vitamin B12 570 pg/mL (200-900)
== END 2025-01-11 09:58 | disposition home or self-care (01) ==
LOC: HO.LAB 09:57
PROVIDERS: PCP Physician Assistant Medical; Visit Provider Physician Assistant Medical
DX: Z00.00 Encounter for general adult medical examination without abnormal findings (principal); A69.20 Lyme disease, unspecified; R42 Dizziness and giddiness; N80.9 Endometriosis, unspecified; F50.9 Eating disorder, unspecified; H90.5 Unspecified sensorineural hearing loss; Z86.69 Personal history of other diseases of the nervous system and sense organs
CPT/HCPCS: 36415; 80061; 82306; 82607; 82746; 83036; 83735; 96127

== ENCOUNTER 2025-01-11 09:57 | Outpatient (AMB) | payer OTHER, SELFPAY ==
--- NOTE | 2025-01-11 09:55 | MHC.PC.OV ---
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: No Accompanied by: Self / Same As Patient Allergies shellfish derived Allergy (Verified 01/11/25 10:34) Unknown Medication List - Last Reconciled 01/11/25 by Ariana Chappell PA-C doxycycline hyclate 100 mg PO BID 21 days elagolix (Orilissa) 150 mg PO DAILY Tobacco use date assessed: 01/11/25 Dental Screening Dental Screen Date: 01/11/25 Did you have a dental visit in the last 12 months?: Yes Did you have a dental problem in the last 6 months where you did not have access to dental care?: No Was dental information given to patient?: Patient has dentist HPI establish care HPI Details The patient is a 24-year-old female presenting for a new patient appointment with symptoms suggestive of Lyme disease and episodes of dizziness. The patient reports a history of testing positive for Lyme disease antibodies, with four out of five antibodies detected, although treatment was not initiated at that time when tested in the emergency department. She experiences significant fatigue and episodes characterized by a grant vu sensation, hot flashes, dizziness, nausea, and fogginess, prompting her to lie down during these episodes. These symptoms led to an emergency room visit where Lyme disease was suspected, and a follow-up with cardiology and neurology was recommended. The patient has a medical history of endometriosis, for which she is taking Orilissa, and chronic migraines. She also has a history of a restrictive eating disorder and sensorineural hearing loss. The patient underwent two arthroscopic capsular shifts for shoulder instability in 2020, performed in [place] through [facility]. She denies any family history of colon or breast cancer and is currently under gynecological care, including breast and cervical cancer screenings. Social History - The patient follows up with a canal equipment maintenance supervisor for her restrictive eating disorder. [facility] Medical History (Updated 01/11/25 @ 10:43 by Ariana Chappell PA-C) Sensorineural hearing loss, unspecified Eating disorder History of migraine headaches Endometriosis Lyme disease Family History Mother Acute migraine Father No problems noted. Social History Housing: Apartment Alcohol intake: current Alcohol intake frequency: holidays/special occasions only Patient Tobacco Use Status: Never used Tobacco service: No Current occupational status: employed and student Cognitive needs: No Hearing needs: Yes (by lateral earing aids) Vision needs: Yes (rx glasses) Questionnaire PHQ-9 Over the last 2 weeks, how often have you been bothered by any of the following problems? 1. Little interest or pleasure in doing things: not at all 2. Feeling down, depressed, or hopeless: not at all 3. Trouble falling or staying asleep, or sleeping too much: not at all 4. Feeling tired or having little energy: not at all 5. Poor appetite or overeating: not at all 6. Feeling bad about yourself - or that you are a failure or have let yourself or your family down: not at all 7. Trouble concentrating on things, such as reading the newspaper or watching television: not at all 8. Moving or speaking so slowly that other people could have noticed. Or the opposite - being so fidgety or restless that you have been moving around a lot more than usual: not at all 9. Thoughts that you would be better off or of hurting yourself in some way: not at all Total score: 0 Depression Screening Interpretation: Negative Depression Screening Done: Yes 16816 - PHQ-9 Billing: Yes Source: Developed by Drs. Tyrel Vences, Lizzie Owens, Curly Sanders and colleagues, with an educational delia from [employer]. Thrive Questionnaire Date Thrive assessed: 01/11/25 I am a: Patient What is your living situation today?: I have a steady place to live Within the past 12 months, did the food you bought not last and you didn't have the money to get more?: Never true Within the past 12 months, did you worry whether your food would run out before you got money to buy more?: Never true Do you have trouble paying for medicines?: No Do you have trouble getting transportation to medical appointments?: No Do you have trouble paying your heating and electricity bill?: No Do you have trouble taking care of your child, family member or friend?: No Do you have trouble with day-to-day activities such as bathing, preparing meals, shopping, managing finances, etc.?: No Are you currently unemployed and looking for a job?: No Are you interested in more education?: No Please select the resources that you would like help with: None THRIVE Score: 0 AUDIT C Alcohol Use Questionnaire (AUDIT-C) 1. How often do you have a drink containing alcohol?: Monthly or less 2. How many drinks containing alcohol do you have on a typical day when you are drinking?: 1 or 2 3. How often do you have six or more drinks on one occasion?: Never Total Score: 1 Score Reviewed/Action Taken: No KERRI-7 AMB Questionnaire KERRI-7 Date KERRI - 7 assessed: 01/11/25 Feeling nervous, anxious, or on edge: 0 = Not at all Not being able to stop or control worryin = Not at all Worrying too much about different things: 0 = Not at all Trouble relaxin = Not at all Being so restless that it is hard to sit still: 0 = Not at all Becoming easily annoyed or irritable: 0 = Not at all Feeling afraid as if something awful might happen: 0 = Not at all Total KERRI-7 score (0-4 normal; 5-9 mild; 10-14 moderate; 15-21 severe): 0 Source: Developed by Drs. Tyrel Vences, Lizzie Owens, Curly Sanders and colleagues, with an educational delia from [employer]. KERRI-7 Assessment Billing KERRI-7 Assessment Tool: KERRI-7 Assessment 92554 Review of Systems Const Details: - General: Reports significant fatigue. - Neurological: Reports episodes of grant vu sensation, dizziness, and fogginess. Denies chronic headaches or balance issues. - Gastrointestinal: Reports nausea during episodes. Denies abdominal pain or unintentional weight loss. - Musculoskeletal: Denies swelling of the legs. - Endocrine: Denies any thyroid issues. All systems reviewed & are unremarkable except as noted in HPI and below Physical exam (Primary Care) Vital Signs: Last Vital Signs Temp 98.1 F 01/11/25 10:03 Pulse 92 01/11/25 10:03 Resp 16 01/11/25 10:03 BP 120/74 01/11/25 10:03 Pulse Ox 99 01/11/25 10:03 Oxygen Delivery Method Room Air 01/11/25 10:03 Care Plan Goal for BP management: <140/90 at Goal BMI result Body Mass Index 20.8 normal bmi Tobacco/Smoking Status: Tobacco use Status Tobacco use date assessed 01/11/25 01/11/25 09:57 Patient Tobacco Use Status Never used Tobacco 01/11/25 10:07 PHQ-9: PHQ-9 Score PHQ-9: Total score 0 01/11/25 10:16 Depression Screening Interpretation: Negative Thrive Assessment: Date of Thrive Assessment Date Thrive assessed 01/11/25 01/11/25 09:57 Const Other: Appearance: Alert. Oriented X3. No acute distress. Head: Normal external exam. Normocephalic. Atraumatic. Eyes: Pupils are equal, round, and reactive to light. Extraocular movements intact. Conjunctiva and sclera normal. Eyelids normal. Ears: External auditory canal normal. Tympanic membranes normal. Throat: Pharynx normal. Uvula midline. Moist mucous membranes. Neck: Normal inspection. Neck supple. Full range of motion. No adenopathy. Thyroid Normal. No meningeal signs. No neck mass noted. Cardiovascular: Normal heart rate and rhythm. Heart sound normal. No murmurs noted. Pulses normal throughout. Respiratory: No respiratory distress. Painless inspiration. Breath sounds normal. No wheezes/rales/rhonchi noted. No accessory muscle usage noted or decreased air movement noted. Abdomen: Soft and nontender. No distention noted. No organomegaly noted. No visible injury noted. Back: No costovertebral angle tenderness. Full range of motion noted. Skin: Skin warm and dry. Normal skin color. Normal skin turgor. No rashes/lesions/lacerations noted. Extremities: No lower extremity edema. Extremities exhibit normal range of motion. Neuro: Oriented X 3. No motor deficit. No sensory deficit. Reflexes normal. Results Reviewed Results Reviewed: - Labs: Positive for four out of five Lyme disease antibodies. - Tests: Scheduled tilt table test for suspected POTS. Coding Level of Care Code New Pt Level 4 (90933) Complex EM visit Add On G2211 Diagnoses Lyme disease A69.20 Lightheadedness R42 Endometriosis N80.9 History of migraine headaches Z86.69 Eating disorder F50.9 Sensorineural hearing loss, unspecified H90.5 Additional Codes PHQ-9 - 96335 - PHQ-9 Billing: Yes ([id number]) KERRI-7 Assessment Billing - KERRI-7 Assessment Tool: KERRI-7 Assessment 94921 ([id number]) Assessment & Plan Assessment & Plan (1) Lyme disease: Code(s): A69.20 - Lyme disease, unspecified Category: Medical Plan: The patient will be treated with doxycycline for 21 days to address the Lyme disease, given the positive antibody test results and symptoms of fatigue and dizziness. She is advised to take probiotics during the antibiotic course to prevent gastrointestinal side effects. The patient is also cautioned about potential photosensitivity with doxycycline and advised to avoid sun exposure or use sun protection. (2) Lightheadedness: Code(s): R42 - Dizziness and giddiness Category: Medical Plan: The patient is scheduled for a tilt table test to evaluate for POTS, following symptoms of dizziness and episodes of fogginess. She has a follow-up appointment with cardiology and neurology to further assess and manage these symptoms. (3) Endometriosis: Code(s): N80.9 - Endometriosis, unspecified Category: Medical Plan: The patient is currently managing her endometriosis with Orilissa, condition is chronic and stable will continue to monitor. (4) History of migraine headaches: Code(s): Z86.69 - Personal history of other diseases of the nervous system and sense organs Category: Medical Plan: The patient has a history of chronic migraines. Condition is chronic and stable continue to monitor. (5) Eating disorder: Code(s): F50.9 - Eating disorder, unspecified Category: Medical Plan: The patient follows up with a canal equipment maintenance supervisor for her restrictive eating disorder. Condition is chronic and stable will continue to monitor. (6) Sensorineural hearing loss, unspecified: Code(s): H90.5 - Unspecified sensorineural hearing loss Category: Medical Plan: The patient follows up with a canal equipment maintenance supervisor for her restrictive eating disorder, condition is chronic and stable will continue to monitor. Plan Plan Patient was informed and verbally consented to the use of an ambient scribe for clinic note documentation during this visit. 1. Lyme Disease The patient will be treated with doxycycline for 21 days to address the Lyme disease, given the positive antibody test results and symptoms of fatigue and dizziness. She is advised to take probiotics during the antibiotic course to prevent gastrointestinal side effects. The patient is also cautioned about potential photosensitivity with doxycycline and advised to avoid sun exposure or use sun protection. 2. Postural Orthostatic Tachycardia Syndrome (Pots) The patient is scheduled for a tilt table test to evaluate for POTS, following symptoms of dizziness and episodes of fogginess. She has a follow-up appointment with cardiology and neurology to further assess and manage these symptoms. 3. Endometriosis The patient is currently managing her endometriosis with Orilissa, condition is chronic and stable will continue to monitor. 4. Chronic Migraines The patient has a history of chronic migraines, condition is chronic and stable will continue to monitor. 5. Restrictive Eating Disorder The patient follows up with a canal equipment maintenance supervisor for her restrictive eating disorder, condition is chronic and stable will continue to monitor. 6. Sensorineural Hearing Loss The patient has a history of sensorineural hearing loss, condition is chronic and stable will continue to monitor. During the visit, we discussed the positive Lyme disease antibody test and the decision to initiate treatment with doxycycline for 21 days. I explained the importance of taking probiotics to mitigate gastrointestinal side effects and advised the patient to avoid sun exposure due to potential photosensitivity from doxycycline. We also reviewed her symptoms suggestive of POTS and the scheduled tilt table test, along with follow-up appointments with cardiology and neurology. The patient was informed about the management of her endometriosis with Orilissa and the need for continued follow-up with her canal equipment maintenance supervisor for her restrictive eating disorder. Orders: Orders Hemoglobin A1c Today Z00.00 - Encounter for general adult medical examination without abnormal findings Vitamin D 25-OH Total Today Z00.00 - Encounter for general adult medical examination without abnormal findings Lipid Panel Today Z00.00 - Encounter for general adult medical examination without abnormal findings Magnesium Today Z00.00 - Encounter for general adult medical examination without abnormal findings Vitamin B12 and Folate Today Z00.00 - Encounter for general adult medical examination without abnormal findings Medications: New doxycycline hyclate 100 mg PO BID 42 tabs 0RF 21 days Patient Instructions: - Take doxycycline as prescribed for 21 days. - Use probiotics daily to prevent gastrointestinal side effects. - Avoid sun exposure or use sun protection while on doxycycline. - Follow up with cardiology and neurology as scheduled. - Continue management of endometriosis with Orilissa. - Maintain follow-up with canal equipment maintenance supervisor for eating disorder.
[2025-01-11 10:03] VITALS: BP 120/74; PULSE 92; RESP 16; TEMP 36.7; O2SAT 99; BMI 20.8
--- OUTSIDE RECORDS SUMMARY | 2025-01-11 10:54 | XMS_ITS | Clinical Summary ---
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 [address] [place] [address] Health Maintenance Due Date Last Done Comments Gonorrhea/Chlamydia Screening 2002 HPV Vaccines (1 - 3-dose series) 2017 Meningococcal B Vaccine (1 o f 2 - Standard) 2018 DTaP,Tdap,and Td Vaccines (1 - Tdap) 2021 Hepatitis B Vaccines (1 of 3 - 19+ 3-dose series) 2021 Cervical Cancer Screening: P ap Smear 12/17/2023 COVID-19 Vaccine (1 - 2023-2 5 season) 2024 Depression Screening 05/20/2024 HIV Screening 01/05/2025 Hepatitis C Screening 01/05/2025 Social Influencers of Health Screening 01/05/2025 Influenza Vaccine (#1) 2025 HIB Vaccines Aged Out No longer eligi ble based on patient's age to complete this topic Hepatitis A Vaccines Aged Out No long er eligible based on patient's age to complete this topic IPV Vaccines Aged Out No longer eligi ble based on patient's age to complete this topic MMR Vaccines Aged Out No longer eligi ble based on patient's age to complete this topic Meningococcal ACWY Vaccine Aged Out N o longer eligible based on patient's age to complete this topic Pneumococcal Vaccine: Pediat rics (0 to 5 Years) and At-Risk Patients (6 to 49 Years) Aged Out No longer eligible b ased on patient's age to complete this topic RSV Immunization Patients Un grupo 20 months Aged Out No longer eligible b ased on patient's age to complete this topic Varicella Vaccines Aged Out No longer eligible based on patient's age to complete this topic Insurance [facility] [place] [id number]
== END 2025-01-11 10:33 | disposition home or self-care (01) ==
LOC: HO.HMCSH 09:57
PROVIDERS: PCP Physician Assistant Medical; Visit Provider Physician Assistant Medical
DX: A69.20 Lyme disease, unspecified (principal); R42 Dizziness and giddiness; N80.9 Endometriosis, unspecified; Z86.69 Personal history of other diseases of the nervous system and sense organs; F50.9 Eating disorder, unspecified; H90.5 Unspecified sensorineural hearing loss

== ENCOUNTER 2025-01-21 13:50 | Outpatient (AMB) | payer OTHER, SELFPAY ==
--- NOTE | 2025-01-21 13:52 | MHC.OFFVIS ---
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 3 mths ago she started having episodes of grant vu, nausea, hot flash, fogginess lasting 2- 3minutes and nausea lasts 15 minutes. No headaches. she usually lies down to feel better. she feels dizzy but does not feel like passing out.she has 3-4 episodes a week and sometimes multiple times a day . she is completely aware of her surroundings and is able to interact . No incontinence . No headaches associates with these episodes. she has h/o migraines since middle school- used to be on topiramate.It is well controlled now 1/mth lasting 2 hrs she has h/o syncope last was 1 year ago. she moreira sh/o restrictive eating disorder and has been attributed to that. [facility] Medical History (Updated 01/21/25 @ 14:21 by Maura Rendon MD) Cognitive change Hyperlipidemia LDL goal <100 Sensorineural hearing loss, unspecified Eating disorder History of migraine headaches Endometriosis Lyme disease Surgical History History of shoulder surgery Family History Mother Acute migraine Father No problems noted. Social History Housing: Apartment Alcohol intake: current Alcohol intake frequency: holidays/special occasions only Patient Tobacco Use Status: Never used Tobacco service: No Current occupational status: employed and student Cognitive needs: No Hearing needs: Yes (by lateral earing aids) Vision needs: Yes (rx glasses) Physical Exam Vital Signs: Last Vital Signs Pulse 88 01/21/25 13:53 BP 106/72 01/21/25 13:53 Pulse Ox 98 01/21/25 13:53 Oxygen Delivery Method Room Air 01/21/25 13:53 BMI result Body Mass Index 20.4 Const General: cooperative, healthy appearing, comfortable and no acute distress Nutritional Appearance: average body habitus Orientation/consciousness: patient oriented x3 Eyes Pupils: Equal, round and reactive pupils present Neuro General: patient oriented x3, gait normal, tone normal, moves all extremities and no focal motor deficits Cranial nerves: Yes Facial sensation intact/muscles of mastication intact, Yes Equal, round and reactive pupils present, Yes Bilaterally intact EOM present, Yes Nystagmus not present, Yes Normal facial strength present, Yes Midline tongue present and Yes Ability to bilaterally elevate shoulders present Cognition (Neuro): normal cognition Gait exam (Neuro): Normal gait present Motor exam (neuro): 5/5 motor strength present throughout and Normal motor muscle tone present throughout Deep tendon reflexes (DTR's): Right triceps reflex intensity grade: 1+, Left triceps reflex intensity grade: 1+, Rt Biceps (C5, C6): 1+, Left biceps reflex intensity grade: 1+, Right brachioradialis reflex intensity grade: 1+, Left brachioradialis reflex intensity grade: 1+, Right patellar reflex intensity grade: 1+ and Left patellar reflex intensity grade: 1+ Coordination: [id number] test normal Assessment & Plan Assessment & Plan (1) Cognitive change: Comment: episodes of fogginess , fatigue, nausea Code(s): R41.89 - Other symptoms and signs involving cognitive functions and awareness Category: Medical Plan Unclear if these episodes are related to atypical migraines. Unlikely to be seizures I will evaluate her with EEG Counseled to increase fluid intake . Monitor episodes. Orders: Orders EEG electroencephalogram Today R41.89 - Other symptoms and signs involving cognitive functions and awareness Coding Level of Care Code New Pt Level 4 (75368) Diagnoses Cognitive change R41.89
[2025-01-21 13:53] VITALS: BP 106/72; PULSE 88; O2SAT 98; BMI 20.4
--- OUTSIDE RECORDS SUMMARY | 2025-01-21 15:06 | XMS_ITS | Clinical Summary ---
Author Organization [facility] Address [address] [place] [address] Phone Care Team Providers Care Industrial Welder Name Role Phone Unavailable Primary Care Provider [...] Info) Description 04/06/2025 1:45 PM EST Appointment [facility] Xray [address] [place] [address] Health Maintenance Due Date Last Done Comments Gonorrhea/Chlamydia Screening 2002 HPV Vaccines (1 - 3-dose series) 2017 Meningococcal B Vaccine (1 o f 2 - Standard) 2018 DTaP,Tdap,and Td Vaccines (1 - Tdap) 2021 Hepatitis B Vaccines (1 of 3 - 19+ 3-dose series) 2021 Cervical Cancer Screening: P ap Smear 12/17/2023 Depression Screening 05/20/2024 HIV Screening 01/05/2025 Hepatitis C Screening 01/05/2025 Social Influencers of Health Screening 01/05/2025 COVID-19 Vaccine ( - 2023-2 5 season) 2025 Influenza Vaccine (#1) 2025 HIB Vaccines Aged [...] patient's age to complete this topic Insurance [facility] [place] [id number]
== END 2025-01-21 14:25 | disposition home or self-care (01) ==
LOC: HO.HSMS 13:50
PROVIDERS: PCP Physician Assistant Medical; Visit Provider Psychiatry & Neurology Neurology
DX: R41.89 Other symptoms and signs involving cognitive functions and awareness (principal)
CPT/HCPCS: 99204

== ENCOUNTER 2025-02-04 14:00 | Outpatient (AMB) | payer OTHER, SELFPAY ==
--- NOTE | 2025-02-04 14:01 | MHC.PC.OV ---
Vital Signs 02/04/25 14:02 Height 5 ft 4.84 in Weight 124 lb BMI 20.7 BP 120/70 Blood Pressure Location Lt brachial Position Sitting Respiration 16 Pulse 99 Pulse Source Pulse Oximeter Temp 97.6 F Temp Source Temporal Artery Scan Pulse Oximetry (%) 99 Oxygen Delivery Method Room Air Intake Visit Reasons: Follow up Coordinator Integrated Marketing Required: No Accompanied by: Self / Same As Patient Allergies shellfish derived Allergy (Verified 02/04/25 14:39) Unknown Medication List - Last Reconciled 02/04/25 by Ariana Chappell PA-C elagolix (Orilissa) 150 mg PO DAILY Tobacco use date assessed: 02/04/25 Dental Screening Dental Screen Date: 02/04/25 Did you have a dental visit in the last 12 months?: Yes HPI Follow up HPI Details The patient is a 24-year-old female 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 She requires verification of immunizations and a general health assessment as part of the program requirements. The patient has a history of an eating disorder, which is currently managed with follow-up from a conductor/engineer. There are no current restrictions or need for additional health supervision related to this condition. 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 [facility] Medical History (Updated 02/04/25 @ 14:41 by Ariana Chappell PA-C) Need for Tdap vaccination Encounter for preventive care Cognitive change Hyperlipidemia LDL goal <100 Sensorineural hearing loss, unspecified Eating disorder History of migraine headaches Endometriosis Lyme disease Surgical History History of shoulder surgery Family History Mother Acute migraine Father No problems noted. Social History Housing: Apartment Alcohol intake: current Alcohol intake frequency: holidays/special occasions only Patient Tobacco Use Status: Never used Tobacco service: No Current occupational status: employed and student Cognitive needs: No Hearing needs: Yes (by lateral earing aids) Vision needs: Yes (rx glasses) Questionnaire PHQ-9 Over the last 2 weeks, how often have you been bothered by any of the following problems? 1. Little interest or pleasure in doing things: not at all 2. Feeling down, depressed, or hopeless: not at all 3. Trouble falling or staying asleep, or sleeping too much: not at all 4. Feeling tired or having little energy: not at all 5. Poor appetite or overeating: not at all 6. Feeling bad about yourself - or that you are a failure or have let yourself or your family down: not at all 7. Trouble concentrating on things, such as reading the newspaper or watching television: not at all 8. Moving or speaking so slowly that other people could have noticed. Or the opposite - being so fidgety or restless that you have been moving around a lot more than usual: not at all 9. Thoughts that you would be better off or of hurting yourself in some way: not at all Total score: 0 Depression Screening Interpretation: Negative Depression Screening Done: Yes 94931 - PHQ-9 Billing: Yes Source: Developed by Drs. Tyrel Vences, Lizzie Owens, Curly Sanders and colleagues, with an educational delia from [employer]. Thrive Questionnaire Date Thrive assessed: 01/11/25 I am a: Patient What is your living situation today?: I have a steady place to live Within the past 12 months, did the food you bought not last and you didn't have the money to get more?: Never true Within the past 12 months, did you worry whether your food would run out before you got money to buy more?: Never true Do you have trouble paying for medicines?: No Do you have trouble getting transportation to medical appointments?: No Do you have trouble paying your heating and electricity bill?: No Do you have trouble taking care of your child, family member or friend?: No Do you have trouble with day-to-day activities such as bathing, preparing meals, shopping, managing finances, etc.?: No Are you currently unemployed and looking for a job?: No Are you interested in more education?: No Please select the resources that you would like help with: None THRIVE Score: 0 AUDIT C Alcohol Use Questionnaire (AUDIT-C) 1. How often do you have a drink containing alcohol?: Monthly or less 2. How many drinks containing alcohol do you have on a typical day when you are drinking?: 1 or 2 3. How often do you have six or more drinks on one occasion?: Never Total Score: 1 Score Reviewed/Action Taken: No KERRI-7 AMB Questionnaire KERRI-7 Date KERRI - 7 assessed: 01/11/25 Feeling nervous, anxious, or on edge: 0 = Not at all Not being able to stop or control worryin = Not at all Worrying too much about different things: 0 = Not at all Trouble relaxin = Not at all Being so restless that it is hard to sit still: 0 = Not at all Becoming easily annoyed or irritable: 0 = Not at all Feeling afraid as if something awful might happen: 0 = Not at all Total KERRI-7 score (0-4 normal; 5-9 mild; 10-14 moderate; 15-21 severe): 0 Source: Developed by Drs. Tyrel Vences, Lizzie Owens, Curly Sanders and colleagues, with an educational delia from [employer]. KERRI-7 Assessment Billing KERRI-7 Assessment Tool: KERRI-7 Assessment 70130 Review of Systems Const All systems reviewed & are unremarkable except as noted in HPI and below Physical exam (Primary Care) Vital Signs: Last Vital Signs Temp 97.6 F 02/04/25 14:02 Pulse 99 02/04/25 14:02 Resp 16 02/04/25 14:02 BP 120/70 02/04/25 14:02 Pulse Ox 99 02/04/25 14:02 Oxygen Delivery Method Room Air 02/04/25 14:02 Care Plan Goal for BP management: <140/90 at Goal BMI result Body Mass Index 20.7 Normal BMI Tobacco/Smoking Status: Tobacco use Status Tobacco use date assessed 02/04/25 02/04/25 14:06 Patient Tobacco Use Status Never used Tobacco 02/04/25 14:06 PHQ-9: PHQ-9 Score PHQ-9: Total score 0 02/04/25 14:26 Depression Screening Interpretation: Negative Thrive Assessment: Date of Thrive Assessment Date Thrive assessed 01/11/25 02/04/25 14:06 Const Other: Appearance: Alert. Oriented X3. No acute distress. Head: Normal external exam. Normocephalic. Atraumatic. Eyes: Pupils are equal, round, and reactive to light. Extraocular movements intact. Conjunctiva and sclera normal. Eyelids normal. Ears: External auditory canal normal. Tympanic membranes normal. Throat: Pharynx normal. Uvula midline. Moist mucous membranes. Neck: Normal inspection. Neck supple. Full range of motion. No adenopathy. Thyroid Normal. No meningeal signs. No neck mass noted. Cardiovascular: Normal heart rate and rhythm. Heart sound normal. No murmurs noted. Pulses normal throughout. Respiratory: No respiratory distress. Painless inspiration. Breath sounds normal. No wheezes/rales/rhonchi noted. Chest nontender. No accessory muscle usage noted or decreased air movement noted. Abdomen: Soft and nontender. Bowel sounds normal in all 4 quadrants. No distention noted. No organomegaly noted. No visible injury noted. Back: No costovertebral angle tenderness. Full range of motion noted. Skin: Skin warm and dry. Normal skin color. Normal skin turgor. No rashes/lesions/lacerations noted. Extremities: No lower extremity edema. Extremities exhibit normal range of motion. Extremities nontender. Neuro: Oriented X 3. No motor deficit. No sensory deficit. Reflexes normal. Immunizations Boostrix Tdap 2.5 Lf unit-8 mcg-5 Lf/0.5 mL intramuscular syringe Performing Provider: Ariana Chappell PA-C [place] [facility] Administered by: JUANITA Bonner on 02/04/25 14:33 Dose Route Admin Location Dispensed Lot Number Expiration Date [employer] 0.5 mL IM Left Deltoid 0.5 mL [id number] 04/08/27 94997-730-10 [employer] Total Dispensed Waste 0.5 mL 0 % VIS Given Date VIS Provided VIS Publication Date 02/04/25 Single Vaccine 20 Eligibility Eligibility Date Funding Source Not [facility] Eligible 02/04/25 Private Coding Level of Care Code Est Pt Level 4 (46052) Complex EM visit Add On G2211 Diagnoses Encounter for preventive care Z00.00 Need for Tdap vaccination Z23 Additional Codes KERRI-7 Assessment Billing - KERRI-7 Assessment Tool: KERRI-7 Assessment 34814 ([id number]) PHQ-9 - 27961 - PHQ-9 Billing: Yes ([id number]) Assessment & Plan Assessment & Plan (1) Encounter for preventive care: Code(s): Z00.00 - Encounter for general adult medical examination without abnormal findings Category: Medical Plan: The patient requires verification of immunizations for her 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 Blood work for titers and vaccinations are planned to ensure compliance with program requirements. (2) Need for Tdap vaccination: Code(s): Z23 - Encounter for immunization Category: Medical Plan: Patient given Tdap vaccine at this time Plan Plan Patient was informed and verbally consented to the use of an ambient scribe for clinic note documentation during this visit. 1. Eating Disorder The patient continues to manage her eating disorder with the assistance of a conductor/engineer, and no additional health supervision is required at this time. 2. 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 Blood work for titers and vaccinations are planned to ensure compliance with program requirements. 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 We also reviewed her history of an eating disorder, which is currently managed with a conductor/engineer, and confirmed that no additional health supervision is needed. Orders: Orders Hepatitis A,B,C Profile Today Z00.00 - Encounter for general adult medical examination without abnormal findings Hepatitis B Surface Antibody Today Z00.00 - Encounter for general adult medical examination without abnormal findings Hepatitis B Profile Today Z00.00 - Encounter for general adult medical examination without abnormal findings T Spot TB Today Z00.00 - Encounter for general adult medical examination without abnormal findings MMR IgG Measles Mumps Rubella Today Z00.00 - Encounter for general adult medical examination without abnormal findings Hepatitis B Core Antibody Today Z00.00 - Encounter for general adult medical examination without abnormal findings Hepatitis B Surface Antigen Today Z00.00 - Encounter for general adult medical examination without abnormal findings Varicella IgG Antibody Today Z00.00 - Encounter for general adult medical examination without abnormal findings TDaP Immunization Today Z23 - Encounter for immunization Patient Instructions: - Complete blood work for titers and vaccinations as soon as possible. - Schedule a follow-up appointment within one month to review blood work results and receive any necessary vaccinations. - Return in February for the influenza vaccine.
[2025-02-04 14:02] VITALS: BP 120/70; PULSE 99; RESP 16; TEMP 36.4; O2SAT 99; BMI 20.7
--- OUTSIDE RECORDS SUMMARY | 2025-02-04 16:00 | XMS_ITS | Clinical Summary ---
Author Organization [facility] Address [address] [place] [address] Phone Care Team Providers Care Mine Technician Name Role Phone Unavailable Primary Care Provider [...] Info) Description 04/06/2025 1:45 PM EST Appointment [facility] Xray [address] [place] [address] Health Maintenance Due Date Last [...] Influencers of Health Screening 01/05/2025 COVID-19 Vaccine (1 - 2023-2 5 season) 2025 Influenza Vaccine (#1) 2025 RSV Immunization Adult Patie nts (1 - 1-dose 75+ series) 2077 HIB Vaccines Aged Out No longer eligi [...] patient's age to complete this topic Insurance [facility] [place] [id number]
== END 2025-02-04 14:35 | disposition home or self-care (01) ==
LOC: HO.HMCSH 14:00
PROVIDERS: PCP Physician Assistant Medical; Visit Provider Physician Assistant Medical
DX: Z00.00 Encounter for general adult medical examination without abnormal findings (principal); Z23 Encounter for immunization

== ENCOUNTER → 2025-02-04 14:00 | Outpatient (BNVA) | payer OTHER, SELFPAY | PROVIDERS: PCP Physician Assistant Medical; Visit Provider Physician Assistant Medical | DX: Z00.00 Encounter for general adult medical examination without abnormal findings (principal); F50.9 Eating disorder, unspecified; Z23 Encounter for immunization | CPT/HCPCS: 90471; 90715; 96127 ==

== ENCOUNTER 2025-02-05 11:43 | Outpatient (REF) | payer OTHER, SELFPAY ==
--- OUTSIDE RECORDS SUMMARY | 2025-02-05 12:13 | XMS_ITS | Clinical Summary ---
Author Organization [facility] Address [address] [place] [address] Phone Care Team Providers Care Technical Support Director Name Role Phone Unavailable Primary Care Provider [...] Info) Description 04/06/2025 1:45 PM EST Appointment [facility] Xray [address] [place] [address] Health Maintenance Due Date Last [...] patient's age to complete this topic Insurance [facility] [place] [phone]
[2025-02-06 08:59] LABS: HBS Num1 0.00 mIU/mL (0-7.99); HBc Num1 0.11 S/CO (0.00-0.79); HBsAGNum1 0.38 S/CO (0.00-0.99); Hepatitis A Antibody IgM 0.22 Index (0-0.79); Hepatitis B Surface Antigen Negative (Negative); ~HepC Num1 0.12 S/CO (0.00-0.79); ~Hepatitis A Antibody IgM Nonreactive (Nonreactive); ~Hepatitis B Surface Antibody NONREACTIVE (Nonreactive); ~Hepatitis C Antibody Nonreactive (Nonreactive)
[2025-02-06 12:24] LABS: Rubeola IgG (Measles) 111.00 AU/mL
[2025-02-09 13:18] LABS: TS Negative Control Passed; TS Panel A 0; TS Panel B 0; TS Positive Control Passed; TSpotTB Negative (Negative)
== END 2025-02-05 11:44 | disposition home or self-care (01) ==
LOC: HO.CHCLDS 11:43
PROVIDERS: Visit Provider Physician Assistant Medical
DX: Z00.00 Encounter for general adult medical examination without abnormal findings (principal); Z11.1 Encounter for screening for respiratory tuberculosis
CPT/HCPCS: 36415; 86481; 86704; 86706; 86709; 86735; 86762; 86765; 86787; 86803; 87340

== ENCOUNTER → 2025-02-10 13:58 | Outpatient (REF) | payer OTHER, SELFPAY ==
--- NOTE | 2025-02-10 14:00 | CA_ITS ---
Transthoracic Echocardiogram Patient (Last, First, Middle): Erma Cleveland, Gender: Female Date of : 2000 Age: 24 Procedure Date: 02/10/2025 Procedure Type: Transthoracic Echocardiogram Location: OP Height: 162.56 cm Weight: 54.43 kg BSA: 1.57 m2 Heart Rate: bpm BP: 98 / 70 mmHg Leadership Program Internship: TO Referring MD: Ling Painter STAMPING PRESS OPERATORValdemar Production Intern: Miguel Rutledge MD Symptoms: R42 - Dizziness and giddiness Study Quality: Good ECG Rhythm: Sinus Conclusions: - Normal study Findings Procedure Information Contrast agent, definity, is being given per protocol without apparent complications. Left Ventricle Normal left ventricular size, thickness, and systolic function. Diastolic function is normal for age. Right Ventricle Normal right ventricular cavity size and systolic function. Atria Both atria are normal in size. There is no evidence of interatrial shunt. Aortic Valve Normal aortic valve structure and function. There is no aortic valve stenosis. There is no aortic valve regurgitation. Mitral Valve Normal mitral valve structure and function. There is trace mitral valve regurgitation. There is no mitral valve stenosis. Pulmonic Valve The pulmonic valve is likely normal. There is trace pulmonic valve regurgitation. Tricuspid Valve Normal tricuspid valve structure. Tricuspid regurgitation envelope is inadequate for calculation of right ventricular systolic pressure. Normal right atrial pressure. Great Vessels All visible segments of the aorta are normal in size. The visualized portions of the pulmonary artery and branches are normal. Venous The inferior vena cava is normal in size and collapses greater than 50% with inspiration. Pericardium/Pleural There is no evidence of pericardial effusion. Prior Study Comparison No prior study available for comparison. Measurements 2D Linear Measurements IVSd: 0.60 0.6-0.9/0.6-1.0 cm LVIDd: 5.08 3.9-5.3/4.2-5.9 cm LVIDd Index: 3.24 2.4-3.2/2.2-3.1 cm/m2 LVIDs: 3.31 2.0-3.6 cm LVPWd: 0.62 0.7-1.1 cm LA Diam: 3.10 2.7-3.8/3.0-4.0 cm LAIDs Index: 1.97 1.5-2.3 cm/m2 LV Mass: 123.46 67-162/88-224 g LV Mass Index: 78.64 43-95/49-115 g/m2 LVOT Diam: 2.00 3.0+(-)1.3 cm 2D Systolic Function EF 4C: 57.10 >55% EF 2C: 56.80 >55% EF BiP: 58.00 >55% Mitral Valve MV Pk E: 0.68 MV PK A: 0.31 MV Decel Time: 267.00 E/A: 2.20 E'Lateral: 14.80 E'Medial: 9.36 E/E' Med: 7.20 E/E' Lat: 4.60 PHT: 78.00 MVA PHT: 2.82 Decel Gibson: 2.54 Aortic Valve AoV Pk Bossman: 1.10 AoV Mn Bossman: 0.73 AoV VTI: 0.25 AoV Pk Grad: 5.00 Aov Mn Grad: 2.00 TRACE Cont.VTI: 2.39 LVOT LVOT Pk Bossman: 0.91 LVOT Mn Bossman: 0.61 LVOT VTI: 0.19 LVOT Pk Grad: 3.00 LVOT Mn Grad: 2.00 LVOT Diam: 2.00 LVOT Area: 3.14 Diastolic Function MV Pk E: 0.68 MV Pk A: 0.31 E/A: 2.20 E'Medial: 9.36 E/E' Med: 7.20 E' Laterial: 14.80 E/E' Lat: 4.60 Right Ventricle TAPSE (mm): 26.00 TVS' Bossman: 11.30 Tricuspid Valve RA Press: 3.00 Great Vessels Aorta Sinus of Valsalva: 2.52 2.0-3.5 cm Ao Asc: 2.30 2.1-3.4 cm Updated in Other Vendor System with Status of Final Miguel Rutledge MD electronically signed on 02/10/2025 4:16:35 PM with status of Final
--- OUTSIDE RECORDS SUMMARY | 2025-02-10 16:28 | XMS_ITS | Clinical Summary ---
Author Organization [facility] Address [address] [place] [address] Phone Care Team Providers Care Quality Assurance Supervisor Body Name Role Phone Unavailable Primary Care Provider [...] Description 04/06/2025 1:45 PM EST Appointment [facility] Xray [address] [place] [address] Health Maintenance Due Date Last [...] patient's age to complete this topic Insurance [facility] [place] [id number]
== END ==
LOC: HO.CARD 13:58
PROVIDERS: PCP Physician Assistant Medical; Visit Provider Nurse Practitioner Family
DX: I95.9 Hypotension, unspecified (principal); R42 Dizziness and giddiness
CPT/HCPCS: 93242; 93306; Q9957

== ENCOUNTER → 2025-02-10 14:00 | Outpatient (BNV) | payer OTHER, SELFPAY | PROVIDERS: PCP Physician Assistant Medical; Visit Provider Internal Medicine Cardiovascular Disease | DX: I95.9 Hypotension, unspecified (principal); R42 Dizziness and giddiness | CPT/HCPCS: 93306 ==

== ENCOUNTER 2025-02-18 13:04 | Outpatient (AMB) | payer OTHER, SELFPAY ==
--- NOTE | 2025-02-18 13:27 | AM.OFFVISNUR ---
Intake Visit Reasons: MMR #1 and Hep B #1 vaccine Allergies shellfish derived Allergy (Verified 02/04/25 14:39) Unknown Immunizations Recombivax HB (PF) 10 mcg/mL intramuscular suspension Performing Provider: Ariana Chappell PA-C Performing Location: [facility] [place] Primary [facility] Administered by: Shante Owen LPN on 02/18/25 13:27 Dose Route Admin Location Dispensed Lot Number Expiration Date [facility] Meter Attendant 1 mL IM Left Deltoid 1 mL [id number] 12/15/26 98417-316-37 [employer] Total Dispensed Waste 1 mL 0 % VIS Given Date VIS Provided VIS Publication Date 02/18/25 Single Vaccine 22 Eligibility Eligibility Date Funding Source Not VFC Eligible 02/18/25 Private M-M-R II (PF) 1,000-12,500 TCID50/0.5 mL subcutaneous solution Performing Provider: Ariana Chappell PA-C Performing Location: [facility] Adult [facility] Administered by: Shante Owen LPN on 02/18/25 13:27 Dose Route Admin Location Dispensed Lot Number Expiration Date [facility] Meter Attendant 0.5 mL subcut Left Arm 0.5 mL [id number] 07/13/26 8211-2246-80 [employer] Total Dispensed Waste 0.5 mL 0 % VIS Given Date VIS Provided VIS Publication Date 02/18/25 Single Vaccine 24 Eligibility Eligibility Date Funding Source Not VFC Eligible 02/18/25 Private Assessment & Plan Assessment & Plan Orders: Orders MMR Immunization Today Z23 - Encounter for immunization Hepatitis B Adult Immunization Today Z23 - Encounter for immunization Coding
--- OUTSIDE RECORDS SUMMARY | 2025-02-18 14:32 | XMS_ITS | Clinical Summary ---
Author Organization [facility] Address [address] [place] [address] Phone Care Team Providers Care Grocery Specialist Name Role Phone Unavailable Primary Care Provider [...] Info) Description 04/06/2025 1:45 PM EST Appointment [facility] Xray [address] [place] [address] Health Maintenance Due Date Last [...] patient's age to complete this topic Insurance [facility] [place] [id number]
== END 2025-02-18 13:29 | disposition home or self-care (01) ==
LOC: HO.HMCH 13:05
PROVIDERS: PCP Physician Assistant Medical; Visit Provider Physician Assistant Medical
DX: Z23 Encounter for immunization (principal)

== ENCOUNTER → 2025-02-18 13:04 | Outpatient (BNVA) | payer OTHER, SELFPAY | PROVIDERS: PCP Physician Assistant Medical; Visit Provider Physician Assistant Medical | DX: Z23 Encounter for immunization (principal) | CPT/HCPCS: 90471; 90472; 90707; 90746 ==

== ENCOUNTER 2025-03-10 12:58 | Outpatient (REF) | payer OTHER, SELFPAY ==
--- NOTE | 2025-03-10 14:21 | EEG_ITS ---
Reason for Exam: R41.89 other symptoms and signs involving cognitive function and awareness Roomed Performed:?402 History: hyperlipidemia, sensorineural hearing loss, eating disorder, migraines, endometriosis, lyme disease - Patient reports 4 months of episodes of grant vu, nausea, hot flash, and fogginess that lasts 2-3 mins and then 15 mins of nausea. Patient states episodes happen 3-4 times a week and sometimes multiple times a day. She is completely aware of her surroundings and is able to interact. Medication: no list Technical description? Photic stimulation: completed Hyperventilation:?good effort Behavioral state: pleasant, cooperative State of Consciousness: awake and sleep Skull defect: none Sedation: none Handedness: left Duration of study:?32 min 37 sec Description: This is a 16 channel EEG with an EKG lead. Patient is reported awake during the tracing. Background EEG rhythm is low amplitude fast. Patient transitioned into drowsiness and light sleep. During drowsiness and afterwards periods of left temporal sharply controlled theta range discharges were noted. Photic stimulation did not produce significant driving in her hyperventilation was okay. Patient transitioned into light sleep. Cardiac lead did not reveal any significant abnormality. 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 MTDD
--- OUTSIDE RECORDS SUMMARY | 2025-03-10 18:06 | XMS_ITS | Clinical Summary ---
Author Organization [facility] Address [address] [place] [address] Phone Care Team Providers Care Protozoology Teacher Name Role Phone Unavailable Primary Care Provider [...] Info) Description 04/06/2025 1:45 PM EST Appointment [facility] Xray [address] [place] [address] Health Maintenance Due Date Last [...] patient's age to complete this topic Insurance [facility] [place] [id number]
== END 2025-03-10 12:59 | disposition home or self-care (01) ==
LOC: HO.NEURO 12:58
PROVIDERS: PCP Physician Assistant Medical; Visit Provider Psychiatry & Neurology Neurology
DX: R41.89 Other symptoms and signs involving cognitive functions and awareness (principal)
CPT/HCPCS: 95819

== ENCOUNTER → 2025-03-10 14:21 | Outpatient (BNV) | payer OTHER, SELFPAY | PROVIDERS: PCP Physician Assistant Medical; Visit Provider Psychiatry & Neurology Neurology | DX: R41.89 Other symptoms and signs involving cognitive functions and awareness (principal) | CPT/HCPCS: 95819 ==

== ENCOUNTER 2025-03-11 09:37 | Outpatient (AMB) | payer OTHER, SELFPAY ==
--- NOTE | 2025-03-11 09:41 | MHC.PC.OV ---
Vital Signs 03/11/25 09:46 Height 5 ft 4 in Weight 125 lb BMI 21.5 BP 115/66 Blood Pressure Location Lt brachial Position Sitting Pulse 65 Pulse Source Pulse Oximeter Temp 98.2 F Temp Source Temporal Artery Scan Pulse Oximetry (%) 99 Oxygen Delivery Method Room Air Intake Visit Reasons: 1 month f/u needs Flu vaccine Explosives Engineer Required: No Accompanied by: Self / Same As Patient Allergies shellfish derived Allergy (Verified 03/11/25 11:59) Unknown Medication List - Last Reconciled 03/11/25 by Ariana Chappell PA-C elagolix (Orilissa) 150 mg PO DAILY levetiracetam 500 mg PO BID Tobacco use date assessed: 03/11/25 Dental Screening Dental Screen Date: 03/11/25 Did you have a dental visit in the last 12 months?: Yes HPI 1 month f/u needs Flu vaccine HPI Details The patient is a 24-year-old female presenting with a follow-up for seizures. She has a history of migraines and recently began experiencing episodes of fogginess, grant vu, nausea, and hot flashes, which last two to three minutes, with nausea persisting for 15 minutes. These episodes occur three to four times a week, sometimes multiple times a week, and are not associated with headaches or incontinence. The patient underwent an EEG, which revealed mildly abnormal results with mild left temporal epileptic discharges, leading to a diagnosis of seizures. She has been started on Lamictal 500 mg BID and advised not to drive for six months to ensure seizure control. The patient has a history of syncope, with the last episode occurring one year ago, and a history of a restrictive eating disorder. 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 Discussing with the neurologist Dr. Rendon to see if patient will have to go on short-term disability due to she drives for a living and if she can not drive for 6 months she can not work as an EMT. 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 Filled out paperwork today. 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 - Housing: Lives alone in an apartment. - Relationship: Has a boyfriend who works two jobs flight crew time clerk. [facility] [employer] [facility] Medical History (Updated 03/11/25 @ 12:05 by Ariana Chappell PA-C) History of syncope Epileptic seizure Need for Tdap vaccination Encounter for preventive care Cognitive change Hyperlipidemia LDL goal <100 Sensorineural hearing loss, unspecified Eating disorder History of migraine headaches Endometriosis Lyme disease Surgical History History of shoulder surgery Family History Mother Acute migraine Father No problems noted. Social History Housing: Apartment Alcohol intake: current Alcohol intake frequency: holidays/special occasions only Patient Tobacco Use Status: Never used Tobacco service: No Current occupational status: employed and student Cognitive needs: No Hearing needs: Yes (by lateral earing aids) Vision needs: Yes (rx glasses) Questionnaire PHQ-9 Over the last 2 weeks, how often have you been bothered by any of the following problems? 1. Little interest or pleasure in doing things: not at all 2. Feeling down, depressed, or hopeless: not at all 3. Trouble falling or staying asleep, or sleeping too much: not at all 4. Feeling tired or having little energy: not at all 5. Poor appetite or overeating: not at all 6. Feeling bad about yourself - or that you are a failure or have let yourself or your family down: not at all 7. Trouble concentrating on things, such as reading the newspaper or watching television: not at all 8. Moving or speaking so slowly that other people could have noticed. Or the opposite - being so fidgety or restless that you have been moving around a lot more than usual: not at all 9. Thoughts that you would be better off or of hurting yourself in some way: not at all Total score: 0 Depression Screening Interpretation: Negative Depression Screening Done: Yes 06522 - PHQ-9 Billing: Yes Source: Developed by Drs. Tyrel Vences, Lizzie Owens, Curly Sanders and colleagues, with an educational delia from [employer]. Thrive Questionnaire Date Thrive assessed: 03/11/25 I am a: Patient What is your living situation today?: I have a steady place to live Within the past 12 months, did the food you bought not last and you didn't have the money to get more?: Never true Within the past 12 months, did you worry whether your food would run out before you got money to buy more?: Never true Do you have trouble paying for medicines?: No Do you have trouble getting transportation to medical appointments?: No Do you have trouble paying your heating and electricity bill?: No Do you have trouble taking care of your child, family member or friend?: No Do you have trouble with day-to-day activities such as bathing, preparing meals, shopping, managing finances, etc.?: No Are you currently unemployed and looking for a job?: No Are you interested in more education?: No Please select the resources that you would like help with: None THRIVE Score: 0 AUDIT C Alcohol Use Questionnaire (AUDIT-C) 1. How often do you have a drink containing alcohol?: Monthly or less 2. How many drinks containing alcohol do you have on a typical day when you are drinking?: 1 or 2 3. How often do you have six or more drinks on one occasion?: Never Total Score: 1 Score Reviewed/Action Taken: No KERRI-7 AMB Questionnaire KERRI-7 Date KERRI - 7 assessed: 01/11/25 Feeling nervous, anxious, or on edge: 0 = Not at all Not being able to stop or control worryin = Not at all Worrying too much about different things: 0 = Not at all Trouble relaxin = Not at all Being so restless that it is hard to sit still: 0 = Not at all Becoming easily annoyed or irritable: 0 = Not at all Feeling afraid as if something awful might happen: 0 = Not at all Total KERRI-7 score (0-4 normal; 5-9 mild; 10-14 moderate; 15-21 severe): 0 Source: Developed by Drs. Tyrel Vences, Lizzie Owens, Curly Sanders and colleagues, with an educational delia from [employer]. KERRI-7 Assessment Billing KERRI-7 Assessment Tool: KERRI-7 Assessment 29991 Review of Systems Const Details: - Neurological: Reports episodes of fogginess, grant vu, nausea, and hot flashes lasting two to three minutes, with nausea lasting 15 minutes. Denies headaches or incontinence. - General: Denies feeling like passing out during episodes. All systems reviewed & are unremarkable except as noted in HPI and below Physical exam (Primary Care) Vital Signs: Last Vital Signs Temp 98.2 F 03/11/25 09:46 Pulse 65 03/11/25 09:46 BP 115/66 03/11/25 09:46 Pulse Ox 99 03/11/25 09:46 Oxygen Delivery Method Room Air 03/11/25 09:46 Care Plan Goal for BP management: <140/90 at Goal BMI result Body Mass Index 21.5 Tobacco/Smoking Status: Tobacco use Status Tobacco use date assessed 03/11/25 03/11/25 09:43 Patient Tobacco Use Status Never used Tobacco 03/11/25 09:43 PHQ-9: PHQ-9 Score PHQ-9: Total score 0 03/11/25 09:53 Depression Screening Interpretation: Negative Thrive Assessment: Date of Thrive Assessment Date Thrive assessed 03/11/25 03/11/25 09:43 Const Other: Appearance: Alert. Oriented X3. No acute distress. Head: Normal external exam. Normocephalic. Atraumatic. Eyes: Pupils are equal, round, and reactive to light. Extraocular movements intact. Conjunctiva and sclera normal. Eyelids normal. Throat: Pharynx normal. Uvula midline. Moist mucous membranes. Neck: Normal inspection. Neck supple. Full range of motion. Cardiovascular: Normal heart rate and rhythm. Respiratory: No respiratory distress. Painless inspiration. Back: Full range of motion noted. Skin: Skin warm and dry. Normal skin color. Normal skin turgor. No rashes/lesions/lacerations noted. Extremities: Extremities exhibit normal range of motion. Neuro: Oriented X 3. No motor deficit. No sensory deficit. Reflexes normal. Office Procedures Flu Questionnaire Does the patient have a severe egg allergy?: No Does the patient have severe life threatening allergies?: No Does the patient have a fever or illness today?: No Has the patient ever had Guillain-[place] Syndrome?: No Has the patient ever had any past reaction to a flu shot?: No Immunizations Fluarix [id number] (PF) 45 mcg (15 mcg x 3)/0.5 mL IM syringe Performing Provider: Ariana Chappell PA-C [facility] Administered by: Ivelisse Willett CMA on 03/11/25 09:53 Dose Route Admin Location Dispensed Lot Number Expiration Date NDC Sem Manager 0.5 mL IM Left Deltoid 0.5 mL [id number] 11/16/25 [id number] [email or web address] VIS Given Date VIS Provided VIS Publication Date 03/11/25 Single Vaccine 24 Eligibility Eligibility Date Funding Source Not [facility] Eligible 03/11/25 Private Results Reviewed Results Reviewed: - EEG: Mildly abnormal with mild left temporal epileptic discharges. Coding Level of Care Code Est Pt Level 4 (47846) Complex EM visit Add On G2211 Diagnoses Epileptic seizure G40.909 History of migraine headaches Z86.69 History of syncope Z87.898 Eating disorder F50.9 Additional Codes KERRI-7 Assessment Billing - KERRI-7 Assessment Tool: KERRI-7 Assessment 69640 ([id number]) PHQ-9 - 92572 - PHQ-9 Billing: Yes ([id number]) Assessment & Plan Assessment & Plan (1) Epileptic seizure: Code(s): G40.909 - Epilepsy, unspecified, not intractable, without status epilepticus Category: Medical Plan: The patient has been diagnosed with seizures following an EEG that showed mild left temporal epileptic discharges. She has been prescribed Lamictal 500 mg BID and advised not to drive for six months to ensure seizure control and safety. (2) History of migraine headaches: Code(s): Z86.69 - Personal history of other diseases of the nervous system and sense organs Category: Medical Plan: The patient has a history of migraines, which are currently well controlled. (3) History of syncope: Code(s): Z87.898 - Personal history of other specified conditions Category: Medical Plan: The patient has a history of syncope, with the last episode occurring one year ago. (4) Eating disorder: Code(s): F50.9 - Eating disorder, unspecified Category: Medical Plan: The patient has a history of a restrictive eating disorder, which has been noted in her medical history. Plan Plan Patient was informed and verbally consented to the use of an ambient scribe for clinic note documentation during this visit. 1. Seizures The patient has been diagnosed with seizures following an EEG that showed mild left temporal epileptic discharges. She has been prescribed Lamictal 500 mg BID and advised not to drive for six months to ensure seizure control and safety. 2. Migraine The patient has a history of migraines, which are currently well controlled. 3. Syncope The patient has a history of syncope, with the last episode occurring one year ago. 4. Restrictive Eating Disorder The patient has a history of a restrictive eating disorder, which has been noted in her medical history. During the visit, I discussed the results of the EEG with the patient, explaining the diagnosis of seizures due to mild left temporal epileptic discharges. I informed her about the prescription of Lamictal 500 mg BID and the importance of not driving for six months to ensure her safety and the safety of others. 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 Orders: Orders Influenza [id number] Immunization Today Z23 - Encounter for immunization Patient Instructions: - Take Lamictal 500 mg twice daily as prescribed. - Do not drive for six months to ensure seizure control and safety. - Discuss with your employer about potential short-term disability or leave due to driving restrictions.
[2025-03-11 09:46] VITALS: BP 115/66; PULSE 65; TEMP 36.8; O2SAT 99; BMI 21.5
--- OUTSIDE RECORDS SUMMARY | 2025-03-11 10:56 | XMS_ITS | Clinical Summary ---
Author Organization [facility] Address [address] [place] [address] Phone Care Team Providers Care Operations Administrator Name Role Phone Unavailable Primary Care Provider [...] Info) Description 04/06/2025 1:45 PM EST Appointment [facility] Xray [address] [place] [address] Health Maintenance Due Date Last [...] patient's age to complete this topic Insurance [facility] [place]USER [id number]
== END 2025-03-11 10:30 | disposition home or self-care (01) ==
LOC: HO.HMCSH 09:37
PROVIDERS: PCP Physician Assistant Medical; Visit Provider Physician Assistant Medical
DX: G40.909 Epilepsy, unspecified, not intractable, without status epilepticus (principal); Z86.69 Personal history of other diseases of the nervous system and sense organs; Z87.898 Personal history of other specified conditions; F50.9 Eating disorder, unspecified; Z23 Encounter for immunization

== ENCOUNTER → 2025-03-11 09:37 | Outpatient (BNVA) | payer OTHER, SELFPAY | PROVIDERS: PCP Physician Assistant Medical; Visit Provider Physician Assistant Medical | DX: G40.909 Epilepsy, unspecified, not intractable, without status epilepticus (principal); F50.9 Eating disorder, unspecified; G43.909 Migraine, unspecified, not intractable, without status migrainosus; R55 Syncope and collapse; Z23 Encounter for immunization; Z86.69 Personal history of other diseases of the nervous system and sense organs; Z87.898 Personal history of other specified conditions | CPT/HCPCS: 90471; 90656; 96127 ==

== ENCOUNTER 2025-03-30 09:56 | Outpatient (AMB) | payer OTHER, SELFPAY ==
--- NOTE | 2025-03-30 09:57 | MHC.OFFVIS ---
Vital Signs 03/30/25 09:59 Height 5 ft 4 in Weight 126 lb 6 oz BMI 21.7 BP 112/78 Blood Pressure Location Rt brachial Position Sitting Pulse 79 Pulse Source Pulse Oximeter Pulse Oximetry (%) 99 Oxygen Delivery Method Room Air Intake Visit Reasons: 2 months F/U OK per MD (CONF.) Intake Note: Follow up Cognitive change Surgical Assistant Required: No Accompanied by: Friend Allergies shellfish derived Allergy (Verified 03/30/25 09:58) Unknown Medication List - Last Reconciled 03/30/25 by Maura Rendon MD elagolix (Orilissa) 150 mg PO DAILY levetiracetam 500 mg PO BID HPI Comments Details: 24y/o female with h/o migraines comes for episodes of fogginess. 3 mths ago she started having episodes of grant vu, nausea, hot flash, fogginess lasting 2- 3minutes and nausea lasts 15 minutes.5/week she started Levetiracetam 500mg bid - she reports emotional side effects- more emotional , increase in fogginess.she still has 2-3 episodes a wee: Mildly abnormal EEG revealing mild left temporal epileptic discharges. No headaches. she usually lies down to feel better. she feels dizzy but does not feel like passing out.she has 3-4 episodes a week and sometimes multiple times a day . she is completely aware of her surroundings and is able to interact . No incontinence . No headaches associates with these episodes. she has h/o migraines since middle school- used to be on topiramate.It is well controlled now 1/mth lasting 2 hrs she has h/o syncope last was 1 year ago. she moreira sh/o restrictive eating disorder and has been attributed to that. [facility] Medical History (Updated 03/30/25 @ 10:23 by Maura Rendon MD) Complex partial seizures History of syncope Epileptic seizure Need for Tdap vaccination Encounter for preventive care Cognitive change Hyperlipidemia LDL goal <100 Sensorineural hearing loss, unspecified Eating disorder History of migraine headaches Endometriosis Lyme disease Surgical History History of shoulder surgery Family History Mother Acute migraine Father No problems noted. Social History Housing: Apartment Alcohol intake: current Alcohol intake frequency: holidays/special occasions only Patient Tobacco Use Status: Never used Tobacco service: No Current occupational status: employed and student Cognitive needs: No Hearing needs: Yes (by lateral earing aids) Vision needs: Yes (rx glasses) Physical Exam Vital Signs: Last Vital Signs Pulse 79 03/30/25 09:59 BP 112/78 03/30/25 09:59 Pulse Ox 99 03/30/25 09:59 Oxygen Delivery Method Room Air 03/30/25 09:59 BMI result Body Mass Index 21.7 Const General: cooperative, healthy appearing, comfortable and no acute distress Nutritional Appearance: average body habitus Orientation/consciousness: patient oriented x3 Eyes Pupils: Equal, round and reactive pupils present Neuro General: patient oriented x3, gait normal, tone normal, moves all extremities and no focal motor deficits Cranial nerves: Yes Facial sensation intact/muscles of mastication intact, Yes Equal, round and reactive pupils present, Yes Bilaterally intact EOM present, Yes Nystagmus not present, Yes Normal facial strength present, Yes Midline tongue present and Yes Ability to bilaterally elevate shoulders present Cognition (Neuro): normal cognition Gait exam (Neuro): Normal gait present Motor exam (neuro): 5/5 motor strength present throughout and Normal motor muscle tone present throughout Coordination: [id number] test normal Results Reviewed Results Reviewed: 03/10/25: Mildly abnormal EEG revealing mild left temporal epileptic discharges. Assessment & Plan Assessment & Plan (1) Complex partial seizures: Comment: episodes of fogginess , confusion , nausea, grant vu 5/week prior to keppra Code(s): G40.209 - Localization-related (focal) (partial) symptomatic epilepsy and epileptic syndromes with complex partial seizures, not intractable, without status epilepticus Category: Medical Qualifiers: Epilepsy type: partial symptomatic Intractability: not intractable Status epilepticus: without status epilepticus Qualified Code(s): G40.209 - Localization-related (focal) (partial) symptomatic epilepsy and epileptic syndromes with complex partial seizures, not intractable, without status epilepticus Plan Patient is not tolerating Levetiracetam . Tegretol XR 200mg bid for 2 week s and then increase to 2 tabs bid ( 400mg bid) Taper levetiracetam to 500mg qd 1 week after starting tegretol continue levetiracetam 500mg for 4 weeks then stop monitor episodes NO DRIVING FMLA FORM WILL BE FILLED Coding Level of Care Code Est Pt Level 4 (90657) Complex EM visit Add On G2211 Diagnoses Partial symptomatic epilepsy with complex partial seizures, not intractable, without status epilepticus G40.209 Epilepsy type: partial symptomatic Intractability: not intractable Status epilepticus: without status epilepticus
[2025-03-30 09:59] VITALS: BP 112/78; PULSE 79; O2SAT 99; BMI 21.7
--- OUTSIDE RECORDS SUMMARY | 2025-03-30 11:19 | XMS_ITS | Clinical Summary ---
Author Organization [facility] Address [address] [place] [address] Phone Care Team Providers Care Home Attendant Name Role Phone Unavailable Primary Care Provider [...] Info) Description 04/06/2025 1:45 PM EST Appointment [facility] Xray [address] [place] [address] Health Maintenance Due Date Last [...] patient's age to complete this topic Insurance [facility] [place]USER [id number]
== END 2025-03-30 10:31 | disposition home or self-care (01) ==
LOC: HO.HSMS 09:57
PROVIDERS: PCP Physician Assistant Medical; Visit Provider Psychiatry & Neurology Neurology
DX: G40.209 Localization-related (focal) (partial) symptomatic epilepsy and epileptic syndromes with complex partial seizures, not intractable, without status epilepticus (principal)
CPT/HCPCS: 99214

== ENCOUNTER 2025-05-06 08:32 | Outpatient (AMB) | payer OTHER, SELFPAY ==
[2025-05-06 08:35] VITALS: BP 106/62; PULSE 90; BMI 22.9
--- NOTE | 2025-05-06 08:35 | MHC.OFFVIS ---
Vital Signs 05/06/25 08:35 Height 5 ft 4 in Weight 133 lb 9.602 oz BMI 22.9 BP 106/62 Blood Pressure Location Rt brachial Position Sitting Pulse 90 Pulse Source Pulse Oximeter Intake Visit Reasons: f/u after test including tilt table Immigration Services Officer Required: No Allergies shellfish derived Allergy (Verified 05/06/25 08:38) Unknown Medication List - Last Reconciled 05/06/25 by Ling Painter NP-Loc carbamazepine ER (Tegretol XR) 1 tab bid for 2 weeks then 2 tabs bid orally 2 times a day; elagolix (Orilissa) 150 mg PO DAILY HPI HPI f/u after test including tilt table: Details: Erma is a 24-year-old female with no significant past medical history who was recently seen in the ER for symptoms of lightheadedness, nausea without significant findings. She was referred to Cardiology in follow-up. On last visit an echocardiogram, Holter monitor and tilt-table test were ordered. Results showed no significant findings. She now presents for follow-up. Today she reports that since her last visit she has been diagnosed with seizures. She is now on medical management and reports resolution of her symptoms. 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 Her prior symptoms included episodes where she feels a sense of days off who then nauseous then lightheaded and with heat in her body. She is left with a foggy feeling causing her concern. These episodes occur without pattern, mostly while she is standing but has occurred once with her sitting. She has not had any recent syncopal events. She did have a syncopal episode last fall when she was not eating or drinking properly. -since starting antiseizure medication she has not had these episodes. No chest discomfort, shortness of breath reported. Tolerating normal ADLs without difficulty. [facility] Medical History Complex partial seizures History of syncope Epileptic seizure Need for Tdap vaccination Encounter for preventive care Cognitive change Hyperlipidemia LDL goal <100 Sensorineural hearing loss, unspecified Eating disorder History of migraine headaches Endometriosis Lyme disease Surgical History History of shoulder surgery Family History Mother Acute migraine Father No problems noted. Social History Housing: Apartment Alcohol intake: current Alcohol intake frequency: holidays/special occasions only Patient Tobacco Use Status: Never used Tobacco service: No Current occupational status: employed and student Cognitive needs: No Hearing needs: Yes (by lateral earing aids) Vision needs: Yes (rx glasses) Review of Systems Const All systems reviewed & are unremarkable except as noted in HPI and below ENT Denies dizziness Card Denies chest pain, Denies chest pain at rest, Denies chest pain with activity, Denies rapid heart rate, Denies pedal edema, Denies edema, Denies leg edema, Denies lightheadedness, Denies palpitations, Denies dyspnea, Denies dyspnea on exertion and Denies orthopnea Resp Denies cough, Denies dyspnea and Denies dyspnea on exertion GI Denies hematochezia and Denies change in stool character Musc Denies abnormal gait, Denies limited range of motion, Denies muscle cramps, Denies muscle weakness, Denies numbness, Denies radiating pain into limb, Denies stiffness and Denies tingling Neuro Denies abnormal gait, Denies dizziness, Denies numbness and Denies tingling Endo Denies palpitations Physical Exam Vital Signs: Last Vital Signs Pulse 90 05/06/25 08:35 BP 106/62 05/06/25 08:35 BMI result Body Mass Index 22.9 Const General: cooperative, healthy appearing, comfortable and no acute distress Orientation/consciousness: patient oriented x3 Neck Neck: Yes normal visual inspection Resp Effort & Inspection: normal respiratory effort Auscultation: clear to auscultation bilaterally, no crackles, no rales, no rhonchi and no wheezes Cardio Rate: regular rate Rhythm: regular rhythm Heart sounds: S1 normal heart sound present, S2 normal heart sound present, no gallops, no murmurs and no rubs Neuro General: patient oriented x3 Extrem General: Yes normal to inspection, No no pedal edema and No calf tenderness Psych Appearance: grossly normal Mental Status: mental status grossly normal Speech and movement: Normal speech and movement present Assessment & Plan Assessment & Plan (1) Lightheadedness: Code(s): R42 - Dizziness and giddiness Category: Medical Plan: Intermittent episodes as described above which were thought to be presyncopal type events. She had an episode of syncope last fall which was thought to be vasovagal. Echocardiogram 02/10/2025 showed normal study. Holter monitor 02/10/2025 for 3 days shows sinus rhythm with average heart rate 69 beats, no significant ectopy. Tilt-table test 04/06/2025 was negative. Test results reviewed with her in detail. Since last visit she reports diagnosis of seizure activity and is now on antiseizure medication with control of her symptoms. Her blood pressure does run on the low side. Reviewed good hydration, increase salt intake, continue physical activity as tolerated. Cardiology follow-up as needed. (2) Low BP: Code(s): I95.9 - Hypotension, unspecified Category: Medical Plan: Low blood pressure reading today. She has reports that she typically runs 110 over 70s. Reviewed need for good hydration and increase salt. Plan I reviewed the results of the patient's comprehensive cardiac workup, which included her normal echocardiogram, heart monitor results, and the negative tilt table test. I explained that her heart is structurally and electrically normal, and her symptoms are not cardiac in origin. We discussed her new diagnosis of seizures from neurology, and I acknowledged that she is on a treatment that is helping. I reinforced that there are no cardiac restrictions on her physical activity. I advised her to maintain good hydration due to her tendency for low blood pressure. I informed the patient that cardiology follow-up is on an as-needed basis, as her workup was reassuring. Patient Instructions: - Your heart tests, including an ultrasound, a heart monitor, and a tilt table test, were all normal. - Your heart is healthy, and your symptoms were not caused by a heart problem. - You have no limits on physical activity from a heart standpoint. - Your blood pressure tends to be on the low side, so it is important to drink plenty of fluids to stay hydrated. - Continue following up with your neurologist for management of your seizure condition. - You do not need a routine follow-up appointment with cardiology. Please contact us if any new heart-related concerns arise. Patient was informed and verbally consented to the use of an ambient scribe for clinic note documentation during this visit. Visit time spent on chart review, interview, assessment, orders, documentation. Coding Level of Care Code Est Pt Level 3 (77711) Add On Problem Visit Only Diagnoses Lightheadedness R42 Low BP I95.9 Time Spent (min) 22
--- OUTSIDE RECORDS SUMMARY | 2025-05-06 08:59 | XMS_ITS | Clinical Summary ---
Author Organization [facility] Address [address] [place] [address] Phone Care Team Providers Care Fountain Brush Assembler Name Role Phone Physician, No Pcp Primary Care Provider Unavaila ble Encounters Date Type Department Care Team Description 04/06/2025 1:41 PM EST - 04/06/2025 11:59 PM EST Hospital Encounter [facility] [address] [place] [address] Dizziness and giddiness Discharge Disposition: Home or Self Care from Last 3 Months Social History Tobacco Use Types Packs/Day Years Used Date Smoking Tobacco: Never Assessed Comments Unknown Sex and Gender Information Value Date Recorded Sex Assigned at Unknown 01/05/2025 9:41 AM EDT Legal Sex Female 9:22 AM EDT Gender Identity Not on file Sexual Orientation Choose not to disclose 2024 9:27 AM EDT Plan of Treatment Health Maintenance Due Date Last Done Comments Gonorrhea/Chlamydia Screening 2002 Meningococcal B Vaccine (1 of 2 - Standard) 2018 Cervical Cancer Screening: Pap Smear 12/17/2023 Depression Screening 05/20/2024 HIV Screening 01/05/2025 Hepatitis C Screening 01/05/2025 Social Influencers of Health Screening 01/05/2025 COVID-19 Vaccine ( season) 2025 05/06/2021, 10/06/2020, 09/15/2020 DTaP,Tdap,and Td Vaccines (8 - Td or Tdap) 02/04/2035 02/04/2025, 07/12/2015, 07/21/2008, Additional history exists RSV Immunization Adult Patients (1 - 1-dose 75+ series) 2077 HIB Vaccines Completed 12/21/2003, 06/2002, 02/16/2003 Pneumococcal Vaccine: Pediatrics (0 to 5 Years) and At-Risk Patients (6 to 49 Years) Completed 04/28/2004, 06/22/2003, 04/20/2003, Additional history exists IPV Vaccines Completed 07/21/2008, 07/2003, 04/20/2003, Additional history exists Varicella Vaccines Completed 01/16/2012, 04/28/2004 HPV Vaccines Completed 02/27/2017, 08/23/2016 Hepatitis A Vaccines Completed 02/27/2017, 08/24/19 17 Meningococcal ACWY Vaccine Completed 08/08/2020, Hepatitis B Vaccines Completed 02/18/2025, 12/21/2003, 04/20/2003, Additional history exists MMR Vaccines Completed 02/18/2025, 08/2008, 12/21/2003 Influenza Vaccine Completed 03/11/2025, , 05/09/2009, Additional history exists RSV Immunization Patients Under 20 months Aged Out No longer eligible based on patient's age to complete this topic Procedures Procedure Name Priority Date/Time Associated Diagnosis Comments TILT TABLE Routine 04/06/2025 2:40 PM EST Dizziness and giddiness from Last 3 Months Results * Tilt table (04/06/2025 2:40 PM EST) Anatomical Region Laterality Modality Radiographic Janice ging Narrative 04/06/2025 3:00 PM EST Recently diagnose with Temporal Epilepsy. Seizure symptoms are lightheadedness, nausea and mild confusion. Tilt Table The patient was brought to lab in fasting state. Patient lied supine for 5 minutes for equilibrium. Baseline ECG showed normal sinus rhythm. Baseline supine minimum BP: 109/60 mmHg Baseline supine minimum HR: 62 bpm Patient tilted to 70 degrees. Tilt maintained for 20 minutes. Minimum BP during tilt: 108/60 mmHg Maximum BP during tilt: 120/55 mmHg Minimum heart rate during tilt: 76 bpm Maximum heart rate during tilt: 88 bpm Rhythm during tilt: normal sinus rhythm There was a clear orthostatic response not noted. Patient experienced a physiologic HR increase with tilt. briefly lightheaded with position change Conclusion: Negative tilt test. Ling Painter NP [facility] PROCED[facility] Final Result from Last [address] [facility] [id number] Care Teams Fountain Brush Assembler Relationship Specialty Start Date End Date Physician, No Pcp PCP - General 04/06/25
== END 2025-05-06 08:54 | disposition home or self-care (01) ==
LOC: HO.HCS 08:33
PROVIDERS: PCP Physician Assistant Medical; Visit Provider Nurse Practitioner Family
DX: R42 Dizziness and giddiness (principal); I95.9 Hypotension, unspecified
CPT/HCPCS: 99213